=== PATIENT | female | born 1935 | race Caucasian/White ===

== ENCOUNTER 2016-05-16 09:45 | Outpatient (CLI) | payer MEDICARE, OTHER | END 2016-05-16 09:46 | disposition home or self-care (01) | DX: N18.9 Chronic kidney disease, unspecified (principal); E83.52 Hypercalcemia ==

== ENCOUNTER 2016-05-23 09:27 | Outpatient (CLI) | payer MEDICARE, OTHER | END 2016-05-23 09:28 | disposition home or self-care (01) | DX: E83.52 Hypercalcemia (principal); N18.9 Chronic kidney disease, unspecified; E21.3 Hyperparathyroidism, unspecified ==

== ENCOUNTER 2017-07-08 18:48 | Outpatient (CLI) | payer MEDICARE, OTHER | END 2017-07-08 18:49 | disposition critical access hospital (66) | LOC: EMS 18:48 | PROVIDERS: ATTEND Surgery | DX: R41.0 Disorientation, unspecified (principal); R46.89 Other symptoms and signs involving appearance and behavior; R07.9 Chest pain, unspecified | CPT/HCPCS: A0425; A0429 ==

== ENCOUNTER 2017-07-08 19:20 | Emergency (ER) | payer MEDICARE, OTHER ==
[2017-07-08] MEDS ORDERED: SODIUM CHLORIDE 0.9% 1,000 ML IV ONE (20:45)
[2017-07-08 21:01] LABS: BASOPHILS # (AUTO) 0.1 10^3/uL (0.0-0.1); BASOPHILS % (AUTO) 0.7 %; EOSINOPHILS # (AUTO) 0.1 10^3/uL (0.0-0.7); EOSINOPHILS % (AUTO) 0.9 %; HGB - HEMOGLOBIN 12.8 g/dL (12.0-16.0); LYMPHOCYTES # (AUTO) 1.3 10^3/uL (1.5-3.5); LYMPHOCYTES % (AUTO) 11.7 %; MEAN CORPUSCULAR HEMOGLOBIN 30.3 pg (27.0-31.0); MEAN CORPUSCULAR HGB CONC 32.3 g/dL (32.0-36.0); MEAN CORPUSCULAR VOLUME 93.7 fL (81.0-99.0); MEAN PLATELET VOLUME 7.2 fL (7.9-10.8); MONOCYTES # (AUTO) 0.8 10^3/uL (0.0-1.0); MONOCYTES % (AUTO) 7.6 %; NEUTROPHILS # (AUTO) 8.5 10^3/uL (1.5-6.6); NEUTROPHILS % (AUTO) 79.1 %; PLT - PLATELET COUNT 173 10^3/uL (130-450); RED BLOOD COUNT 4.23 10^6/uL (4.20-5.40); RED CELL DISTRIBUTION WIDTH 14.6 % (12.0-15.0); WHITE BLOOD COUNT 10.7 x10^3/uL (4.8-10.8)
[2017-07-08 21:13] LABS: ALBUMIN 4.3 g/dL (3.2-5.5); ALBUMIN/GLOBULIN RATIO 1.7 (1.0-2.2); BILIRUBIN,TOTAL 0.8 mg/dL (0.2-1.0); CALCIUM 10.9 mg/dL (8.5-10.3); CREATININE 2.2 mg/dL (0.4-1.0); TOTAL PROTEIN 6.9 g/dL (6.7-8.2)
[2017-07-08 21:25] LABS: BILIRUBIN,URINE NEGATIVE (NEGATIVE); GLUCOSE, URINE (UA) NEGATIVE (NEGATIVE); KETONES,URINE (UA) TRACE mg/dL (NEGATIVE); LEUKOCYTE ESTERASE, URINE MODERATE (NEGATIVE); NITRITE,URINE NEGATIVE (NEGATIVE); OCCULT BLOOD,URINE TRACE-INTA (NEGATIVE); PROTEIN,URINE TRACE mg/dL (NEGATIVE); UROBILINOGEN,URINE 0.2 (NORMAL) E.U./dL (NORMAL)
[2017-07-08 21:33] LABS: BACTERIA,URINE Many /HPF (None Seen); CLARITY,URINE CLOUDY (CLEAR); RBC,URINE 0-5 /HPF (0-5); SQUAMOUS EPITHELIAL CELL,UR FEW Squamous (<= Few)
[2017-07-08] MEDS ORDERED: NITROFURANTOIN MACRO 100 MG CAPSULE PO STA (22:08)
--- NOTE | 2017-07-08 22:14 | ED Physician Documentation ---
History of Present Illness - Stated complaint Stated Complaint: CONFUSED - Chief complaint Chief Complaint: Neuro - History obtained from History obtained from: Patient, Family - History of Present Illness Timing: Today - Additonal information Additional information: Patient is an 81 year old female with no signifcant past medical history who is presenting to the emergency department for near syncope. According to patient and patient was doing laundry when she got a bit light headed. patient leaned over on the washer and then the helped the patient to the floor. patient's called ems. By the time ems arrived patient was starting to feel a bit better and upon initial evaluation in the emergency department patient states that her symptoms have resolved. Review of Systems Constitutional: denies: Fever Eyes: denies: Decreased vision, Photophobia Ears: denies: Ear pain Nose: reports: Reviewed and negative Throat: reports: Reviewed and negative Cardiac: denies: Chest pain / pressure, Palpitations Respiratory: denies: Dyspnea, Cough, Wheezing GI: denies: Abdominal Pain, Nausea, Vomiting : denies: Dysuria, Frequency Skin: denies: Rash, Lesions Musculoskeletal: denies: Extremity swelling Neurologic: reports: Generalized weakness, Head injury. denies: Focal weakness , Syncope, Confused, Headache, LOC Immunocompromised: denies: Immunocompromised PD PAST MEDICAL HISTORY - Past Medical History Cardiovascular: None Respiratory: None Neuro: None Endocrine/Autoimmune: None GI: Chronic diarrhea : None HEENT: None Psych: None Musculoskeletal: Osteoarthritis Derm: Other drug resistant infections - Past Surgical History General: Appendectomy Ortho: Hip replacement, Knee replacement, Other - Present Medications Home Medications: Ambulatory Orders Medication Instructions Recorded Confirmed Niacin 250 mg PO DAILY 04/12/15 04/14/15 Allopurinol 100 mg PO DAILY 04/14/15 07/08/17 Atenolol 25 mg PO Q2D 04/14/15 07/08/17 Colestipol HCl [Colestid] 1 gm PO DAILY PRN 04/14/15 07/08/17 Losartan [Cozaar] 100 mg PO DAILY 04/14/15 07/08/17 Nitrofurantoin Monohyd/M-Cryst 100 mg PO BID 5 Days capsule 07/08/17 [Macrobid 100 mg Capsule] - Allergies Allergies/Adverse Reactions: Allergies Allergy/AdvReac Type Severity Reaction Status Date / Time Penicillins Allergy Hives Verified 07/08/17 19:24 - Social History Does the pt smoke?: No Smoking Status: Never smoker PD ED PE NORMAL - Vitals Vital signs reviewed: Yes - General General: Alert and oriented X 3, No acute distress - HEENT HEENT: Atraumatic, PERRL - Neck Neck: Supple, no meningeal sign - Cardiac Cardiac: RRR - Respiratory Respiratory: No respiratory distress, Clear bilaterally - Abdomen Abdomen: Soft, Non tender, Non distended - Derm Derm: Normal color, Warm and dry - Extremities Extremities: No deformity, No calf tenderness / cord - Neuro Neuro: Alert and oriented X 3, corporate development intern 2-12 intact, No motor deficit, No sensory deficit, Normal speech Eye Opening: Spontaneous Motor: Obeys Commands Verbal: Oriented GCS Score: 15 - Psych Psych: Normal mood PD ED PE EXPANDED - HEENT HEENT: Dry mucous membranes Results - Vitals Vitals: Vital Signs - 24 hr 07/08/17 07/08/17 07/08/17 19:22 20:00 22:20 Temperature 36.2 C L 36.6 C Heart Rate 94 94 84 Respiratory 18 16 14 Rate Blood Pressure 139/90 H 136/97 H 130/82 H O2 Saturation 99 100 99 Oxygen O2 Source Room air - EKG (time done) 1932 Rate: Rate (enter#) (91) Rhythm: NSR [place]: Normal Intervals: Normal [place] QRS: Normal - Labs Labs: Laboratory Tests 07/08/17 07/08/17 07/08/17 20:56 20:56 20:56 WBC 10.7 RBC 4.23 Hgb 12.8 Hct 39.6 MCV 93.7 MCH 30.3 MCHC 32.3 RDW 14.6 Plt Count 173 MPV 7.2 L Neut # 8.5 H Lymph # 1.3 L Payne # 0.8 Eos # 0.1 Baso # 0.1 Absolute Nucleated RBC 0.00 Nucleated RBC % 0.0 Sodium 138 Potassium 3.5 Chloride 103 Carbon Dioxide 24 Anion Gap 11.0 BUN 29 H Creatinine 2.2 H Estimated GFR (MDRD) 21 L Glucose 117 H Calcium 10.9 H Total Bilirubin 0.8 AST 39 ALT 25 Alkaline Phosphatase 92 Troponin I < 0.04 B-Natriuretic Peptide Total Protein 6.9 Albumin 4.3 Globulin 2.6 Albumin/Globulin Ratio 1.7 Lipase 35 Urine Color Urine Clarity Urine pH Ur Specific [place] Urine Protein Urine Glucose (UA) Urine Ketones Urine Occult Blood Urine Nitrite Urine Bilirubin Urine Urobilinogen Ur Leukocyte Esterase Urine RBC Urine WBC Ur Squamous Epith Cells Urine Bacteria Ur Microscopic Review Urine Culture Comments 07/08/17 07/08/17 20:56 21:13 WBC RBC Hgb Hct MCV MCH MCHC RDW Plt Count MPV Neut # Lymph # Payne # Eos # Baso # Absolute Nucleated RBC Nucleated RBC % Sodium Potassium Chloride Carbon Dioxide Anion Gap BUN Creatinine Estimated GFR (MDRD) Glucose Calcium Total Bilirubin AST ALT Alkaline Phosphatase Troponin I B-Natriuretic Peptide 24 Total Protein Albumin Globulin Albumin/Globulin Ratio Lipase Urine Color YELLOW Urine Clarity CLOUDY Urine pH 6.0 Ur Specific [place] 1.025 Urine Protein TRACE Urine Glucose (UA) NEGATIVE Urine Ketones TRACE Urine Occult Blood TRACE-INTA Urine Nitrite NEGATIVE Urine Bilirubin NEGATIVE Urine Urobilinogen 0.2 (NORMAL) Ur Leukocyte Esterase MODERATE H Urine RBC 0-5 Urine WBC >25 H Ur Squamous Epith Cells FEW Squamous Urine Bacteria Many H Ur Microscopic Review INDICATED Urine Culture Comments INDICATED PD MEDICAL DECISION MAKING - ED course Complexity details: reviewed old records, reviewed results, re-evaluated patient , considered differential, d/w patient, d/w family ED course: Patient was seen and examined at bedside. IV access was gained and labs were drawn. patient was treated with a fluid bolus. ekg was performed and was within normal limits. Patient's diagnostics revealed a urinary tract infection. Patient was started on macrobid. patient remained asymptomatic while in the emergency department and was asking to go home Patient required no further work up and was stable for discharge home with outpatient follow up. Departure - Departure Disposition: 01 Home, Self Care Clinical Impression: Urinary tract infection Condition: Good Instructions: ED UTI Cystitis Female Follow-Up: Carole Don MD [Primary Care Provider] - Within 3 Days Prescriptions: Nitrofurantoin Monohyd/M-Cryst [Macrobid 100 mg Capsule] 100 mg PO BID 5 Days capsule Comments: Your symptoms today are being caused by a urinary tract infection and dehydration. You had your first dose of antibiotics tonight and will need to be on them for the next 5 days. You should make sure you stay well hydrated. also you kidney function is continuing to worsen and you will need to follow up with your doctor for re-evaluation and care. You may return to the emergency department at any time for new, worsening or uncontrollable symptoms. Discharge Date/Time: 07/08/17 22:21
[2017-07-08 22:21] VITALS: BP 130/82
== END 2017-07-08 22:21 | disposition home or self-care (01) ==
LOC: EDUNIT# → ED 19:20
DX: N39.0 Urinary tract infection, site not specified (principal); M19.90 Unspecified osteoarthritis, unspecified site
CPT/HCPCS: 36415; 80053; 81001; 83690; 83880; 84484; 85025; 87086; 93005; 99283; 99284; A9270; 81003

== ENCOUNTER 2017-07-12 10:15 | Inpatient (IN) | payer MEDICARE, OTHER ==
[2017-07-12] MEDS ORDERED: LIDOCAINE PATCH 5% TOP PRN (12:12)
[2017-07-12] MEDS ORDERED: oxyCOD/ACETAMIN 5 MG/325 MG TABLET PO STA ×2 (12:12→14:52)
--- NOTE | 2017-07-12 12:14 | ED Physician Documentation ---
History of Present Illness - Stated complaint Stated Complaint: STERNUM PAIN - Chief complaint Chief Complaint: Cardiac - Additonal information Additional information: hx from pt and SO 81 f fell in laundry room struck ant chest seen after in ED and worked up for the near syncope that caused the fall, dx UTI rx macrobid no xray rx oxycodone still hurts did not hit head no headache neck pain abd pain ext pain hurts to move and touch Review of Systems Constitutional: denies: Fever Cardiac: reports: Chest pain / pressure Respiratory: denies: Dyspnea GI: denies: Abdominal Pain Musculoskeletal: denies: Neck pain, Back pain Neurologic: denies: Headache, Head injury Endocrine: denies: Easy bruising / bleeding Immunocompromised: denies: Immunocompromised PD PAST MEDICAL HISTORY - Past Medical History Cardiovascular: None Respiratory: None Neuro: None Endocrine/Autoimmune: None GI: Chronic diarrhea : None HEENT: None Psych: None Musculoskeletal: Osteoarthritis Derm: Other drug resistant infections - Past Surgical History General: Appendectomy Ortho: Hip replacement, Knee replacement, Other - Present Medications Home Medications: Ambulatory Orders Medication Instructions Recorded Confirmed Allopurinol 100 mg PO DAILY 04/14/15 07/12/17 Atenolol 25 mg PO Q2D 04/14/15 07/12/17 Losartan [Cozaar] 100 mg PO DAILY 04/14/15 07/12/17 Nitrofurantoin Monohyd/M-Cryst 100 mg PO BID 5 Days capsule 07/08/17 07/12/17 [Macrobid 100 mg Capsule] - Allergies Allergies/Adverse Reactions: Allergies Allergy/AdvReac Type Severity Reaction Status Date / Time Penicillins Allergy Hives Verified 07/12/17 10:25 - Social History Does the pt smoke?: No Smoking Status: Never smoker PD ED PE NORMAL - Vitals Vital signs reviewed: Yes - General General: Alert and oriented X 3 - HEENT HEENT: Atraumatic, PERRL - Neck Neck: No bony TTP - Cardiac Cardiac: RRR - Respiratory Respiratory: No respiratory distress, Clear bilaterally, Other (bruise and TTP ant chest wall just left of sternum no crepitus) - Abdomen Abdomen: Soft, Non tender - Derm Derm: Normal color - Extremities Extremities: No deformity, No tenderness to palpate - Neuro Neuro: Alert and oriented X 3 Results - Vitals Vitals: Vital Signs - 24 hr 07/12/17 07/12/17 07/12/17 10:20 10:36 13:54 Temperature 36.7 C Heart Rate 78 74 Respiratory 18 18 Rate Blood Pressure 146/104 H 172/90 H Blood Pressure 179/84 H [Left] Blood Pressure 182/96 H [Right] O2 Saturation 99 100 07/12/17 07/12/17 15:41 17:21 Temperature Heart Rate 87 71 Respiratory 16 20 Rate Blood Pressure 155/68 H 134/95 H Blood Pressure [Left] Blood Pressure [Right] O2 Saturation 95 100 Oxygen O2 Source Room air - EKG (time done) 1029 Rate: Rate (enter#) (80) Rhythm: NSR [place]: Normal Intervals: Normal [place] QRS: Normal Ischemia: Normal ST segments - Labs Labs: Laboratory Tests 07/12/17 07/12/17 15:00 15:00 WBC 10.5 RBC 4.39 Hgb 13.6 Hct 41.3 MCV 93.9 MCH 30.9 MCHC 32.9 RDW 14.4 Plt Count 181 MPV 7.8 L Neut # 7.6 H Lymph # 1.2 L [place] # 0.6 Eos # 1.0 H Baso # 0.1 Absolute Nucleated RBC 0.01 Nucleated RBC % 0.1 Sodium 141 Potassium 3.8 Chloride 107 Carbon Dioxide 24 Anion Gap 10.0 BUN 21 H Creatinine 1.3 H Estimated GFR (MDRD) 39 L Glucose 106 H Calcium 11.4 H - Rads (name of study) CXR Radiology: See rad report (sternial fracture) PD MEDICAL DECISION MAKING - ED course ED course: pt pain could not be controlled with PO meds and lido patch, she is sobbing in pain and shrieks whenever she moves she has developed atelectasis vs pna vs pulm contusion 2/2 resp status called [facility] for consult - transfer center relays that this CT trauma surg advises this is no surgical and would be managed medically - they will call with more specific rec pt and SO do not want to go to [place] in any case so will admit for pain control and pulm toilet called hospitalist at 1630 spoke to hospitalist at 1735 [facility] called back and rec no surgery but would rec consideration or an epidural or serratus block, advised may take 6-8 weeks to heal Departure - Departure Disposition: [facility] DC/Xfer Clinical Impression: Sternal fracture Qualifiers: Encounter type: initial encounter Sternal location: unspecified Fracture type: closed Qualified Code(s): S22.20XA - Unspecified fracture of sternum, initial encounter for closed fracture Pulmonary contusion Qualifiers: Encounter type: initial encounter Laterality: right Qualified Code(s): S27.321A - Contusion of lung, unilateral, initial encounter Condition: Fair Discharge Date/Time: 07/12/17 19:12
--- NOTE | 2017-07-12 13:21 | XRAY Preliminary Report ---
Exam: XR CHEST 2 VIEW X-RAY IMPRESSION: 1. Increased parenchymal markings right upper lobe, left lower lobe may be early infiltrate 2. There appears to be buckling along the mid sternum on lateral view [facility] SITE ID: [id number]
--- NOTE | 2017-07-12 13:21 | XRAY Report ---
EXAM: CHEST RADIOGRAPHY EXAM DATE: 07/12/2017 12:33 PM. CLINICAL HISTORY: Chest pain. COMPARISON: 05/05/2008. TECHNIQUE: 2 views. FINDINGS: Lungs/Pleura: Mild increased parenchymal markings right upper lobe. Left basilar infiltrate or atelec tasis. No pleural effusion. No pneumothorax. Flattening hemidiaphragms. Increased AP diameter Mediastinum: Heart size normal. Mildly ectatic aorta Other: There is buckling along the mid sternum on lateral view. Bilateral shoulder arthroplasties IMPRESSION: 1. Increased parenchymal markings right upper lobe, left lower lobe may be early infiltrate 2. There appears to be buckling along the mid sternum on lateral view [facility] Referring Provider Line: [phone] SITE ID: [id number]
--- NOTE | 2017-07-12 14:14 | CT Preliminary Report ---
Exam: CT CHEST W/O IMPRESSION: 1. Tandem nondisplaced fractures sternal body. 2. Late subacute mild wedging T7. 3. Acute on chronic lung disease consisting of small right posterior lung base infiltrate and tiny bi lateral pleural effusions. 4. Several mildly enlarged mediastinal lymph nodes. [facility] SITE ID: [id number]
[2017-07-12] MEDS ORDERED: MORPHINE 2 MG/ML SYRINGE IVP STA (14:23)
[2017-07-12] MEDS ORDERED: ONDANSETRON 4 MG/2 ML VIAL IVP STA (14:23)
--- NOTE | 2017-07-12 14:24 | CT Report ---
EXAM: CT CHEST EXAM DATE: 07/12/2017 01:43 PM. CLINICAL HISTORY: Chest pain since a fall 1 week ago. Sternal fracture suggested on earlier chest x-r ay. COMPARISONS: No prior CT exam. Two-view chest earlier today. TECHNIQUE: Routine helical CT imaging was performed through the chest. IV contrast: None. Reconstruct ions: Coronal and sagittal. In accordance with CT protocol optimization, one or more of the following dose reduction techniques w ere utilized for this exam: automated exposure control, adjustment of mA and/or KV based on patient s ize, or use of iterative reconstructive technique. FINDINGS: Lungs/Pleura: Overexpanded, emphysematous changes. Tiny bilateral pleural effusions. Subsegmental consolidation or atelectasis posterior basilar segment right lower lobe. No pulmonary nodules nor pneumothorax. Mediastinum: Heart is normal caliber. Several mildly enlarged mediastinal lymph nodes. Index lesion precarinal region axial image 21 series 3 measures 1.3 cm transverse dimension. Thoracic aorta is normal caliber. Bones: Acute transverse buckling junction of the mid and inferior third of the sternal body involving the an terior and posterior cortex, best appreciated on sagittal image 34. 8 mm rim of edema anterior and po sterior to the sternal fracture. Lesser degree of cortical buckling only involving the anterior cortex of the sternal body, junction o f superior and mid third of the sternum, also appreciated on sagittal image 34. Very small amount of edema anterior to such. Late subacute mild wedging T7. Moderate kyphosis centered at T7. Visualized Abdomen: Left renal cyst. Other: None. IMPRESSION: 1. Tandem nondisplaced fractures sternal body. 2. Late subacute mild wedging T7. 3. Acute on chronic lung disease consisting of small right posterior lung base infiltrate and tiny bi lateral pleural effusions. 4. Several mildly enlarged mediastinal lymph nodes. [facility] Referring Provider Line: [phone] SITE ID: [id number]
[2017-07-12 15:53] LABS: BASOPHILS # (AUTO) 0.1 10^3/uL (0.0-0.1); BASOPHILS % (AUTO) 0.7 %; EOSINOPHILS % (AUTO) 9.6 %; HGB - HEMOGLOBIN 13.6 g/dL (12.0-16.0); LYMPHOCYTES # (AUTO) 1.2 10^3/uL (1.5-3.5); LYMPHOCYTES % (AUTO) 11.4 %; MEAN CORPUSCULAR HEMOGLOBIN 30.9 pg (27.0-31.0); MEAN CORPUSCULAR HGB CONC 32.9 g/dL (32.0-36.0); MEAN CORPUSCULAR VOLUME 93.9 fL (81.0-99.0); MEAN PLATELET VOLUME 7.8 fL (7.9-10.8); MONOCYTES # (AUTO) 0.6 10^3/uL (0.0-1.0); MONOCYTES % (AUTO) 5.8 %; NEUTROPHILS # (AUTO) 7.6 10^3/uL (1.5-6.6); NEUTROPHILS % (AUTO) 72.5 %; PLT - PLATELET COUNT 181 10^3/uL (130-450); RED BLOOD COUNT 4.39 10^6/uL (4.20-5.40); RED CELL DISTRIBUTION WIDTH 14.4 % (12.0-15.0); WHITE BLOOD COUNT 10.5 x10^3/uL (4.8-10.8)
[2017-07-12 15:59] LABS: CALCIUM 11.4 mg/dL (8.5-10.3); CREATININE 1.3 mg/dL (0.4-1.0)
[2017-07-12] MEDS ORDERED: PROCHLORPERAZINE 10 MG/2 ML VIAL IVP PRN (18:20)
[2017-07-12] MEDS ORDERED: TEMAZEPAM 15 MG CAPSULE PO PRN (18:20)
[2017-07-12] MEDS: SODIUM CHLORIDE FLUSH 0.9% 10 ML SYRINGE IVP PRN ×2 (20:15→20:42)
[2017-07-12] MEDS: PANTOPRAZOLE 40 MG VIAL IVP SCH (20:15)
[2017-07-12] MEDS: HYDROmorphone 0.5 MG/0.5 ML SYRINGE IVP PRN (20:15)
[2017-07-12] MEDS: guaiFENesin 600 MG TABLET PO SCH (20:42)
[2017-07-12] MEDS: oxyCOD/ACETAMIN 5 MG/325 MG TABLET PO PRN (20:42)
[2017-07-12] MEDS: cefTRIAXone 1 GM in SODIUM CHLORIDE 0.9% MINIBAG 100 ML IV SCH (20:43)
[2017-07-12] MEDS: AZITHROMYCIN 250 MG TABLET PO SCH (20:45)
[2017-07-12] MEDS ORDERED: ATENOLOL 25 MG TABLET PO SCH (21:00)
--- NOTE | 2017-07-12 23:31 | HISTORY & PHYSICAL EXAMINATION ---
DATE OF SERVICE: 07/12/2017 Physician: Anusha Brown MD PRIMARY CARE PHYSICIAN: Carole Don MD. CHIEF COMPLAINT: Excruciating chest pain. HISTORY OF PRESENT ILLNESS: Ms. Hart is a pleasant 81-year-old white female who appeared somewhat forgetful and not a very detailed historian when I admitted her. I reviewed ER record, plus the patient provided history. The patient was seen in the ER on , four days prior to current admission. At that time, she presented after suffering a fall, in particular falling on an object /on her washer. The history she provides is somewhat vague, as far as she was doing laundry, she was bending down, at which time she felt short of breath and lost her balance and she fell chest forward on the edge of the washer. At that time, her ER workup showed acute kidney injury with creatinine of 2.2. Urinalysis was positive suggesting urinary tract infection. She received hydration and antibiotic and was found stable enough to get discharged from the ER. Subsequently, during the past four days, she developed excruciating unbearable chest pain. It was worse on physical activity and it appeared as a musculoskeletal pain. Her sternum and the muscles around it hurt. She came back to the ER due to this extreme pain. She did not report any additional complaint. At the ER, she underwent chest x-ray and subsequently the x-ray was followed up with a CT scan of the chest which showed numerous abnormalities including tandem nondisplaced fractures of the sternal body. In addition, there was a late subacute mild wedging of T7, acute on chronic lung disease was described including posterior lung base infiltrate and tiny bilateral pleural effusions. Several mildly enlarged mediastinal lymph nodes were seen as well. Laboratory showed creatinine of 1.3, which decreased from four days ago being 2.2. EKG showed sinus rhythm and nonspecific changes. Notably four days ago, troponin was negative. Given the tandem sternal fracture, the case was discussed with [facility]. We received sign out from the ER physician, Dr. Peoples, who discussed this case with the [facility] physician interpersonal communications professor. The trauma surgeon advised no surgical intervention and given that this would be medical management, they did not recommend transferring this patient. Beside that opinion, the patient herself stated that she would not want to get transferred. The trauma surgeon recommended admission of this patient for pain control and pulmonary toilet. In addition, they recommended epidural or serratus block and anesthesia consult for that. PAST MEDICAL HISTORY 1. Hypertension. 2. Gout. 3. History of urine infection. 4. Dyslipidemia. OUTPATIENT MEDICATIONS: Reviewed per electronic medical record included: 1. Atenolol. 2. Nitrofurantoin. 3. Losartan. 4. Allopurinol. SOCIAL HISTORY: The patient ambulates with a cane. She is a nonsmoker. She lives with her . FAMILY HISTORY: Negative for coronary artery disease or diabetes. The patient reported that two of her sons have history of spherocytosis. REVIEW OF SYSTEMS: Please see pertinent positive listed above at history of present illness. I completed 12-point review. The patient denied all additional complaints. PHYSICAL EXAMINATION VITAL SIGNS: Temperature 36.7, heart rate between 70 and 90, respiratory rate 20, oxygen saturation 98% on room air, blood pressure 150/110. GENERAL: The patient is a well-developed, elderly female who had intense chest pain, sternal pain. She could not sit up in bed or move much as she was crying due to the intense pain. CARDIOVASCULAR: S1, S2 regular. I could not hear pathologic murmur. RESPIRATORY: Decreased air entry above the bases. No wheezes, no crackles. No increased work of breathing. MUSCULOSKELETAL: With intense pain and tenderness over the sternum and the chest muscles. A healing bruise on the left upper thigh. No other obvious injury. NEUROLOGIC: The patient was alert, appeared forgetful, but answered most of my questions appropriately, was neurologically nonfocal. Head symmetric face and normal speech. PSYCHIATRIC: Appropriate mood and affect. LYMPH: No lymphedema. SKIN: Without jaundice or pallor. There were lesions of seborrheic keratoses. ABDOMEN: Soft, benign, nontender. Bowel tones present. ASSESSMENT AND PLAN/ACTIVE ISSUES/DIAGNOSES 1. Uncontrolled pain secondary to tandem nondisplaced sternal fracture. a. Will require inpatient hospitalization due to the intense pain. The patient cannot ambulate or take care of herself. Per trauma surgeon's opinion, the healing will be a long process six to eight weeks and during that time the patient will require significant support. She might need to discharge to a rehab facility. In addition, it was suggested that besides pain control, anesthesia consult gets requested for epidural or serratus block. 2. T7 wedge. 3. Developing pneumonia in the setting of splinting and sternal fracture. 4. Recent mechanical fall about four days ago, which led to the sternal fracture. The patient is a poor historian and cannot tell much about the circumstances, but she reports that she was short of breath. In any case, she likely deserves further workup to make sure no other abnormality contributed. 5. History of hypertension, slightly uncontrolled blood pressure on admission , most likely situational in the setting of uncontrolled pain. 6. Recent urine infection, treated on nitrofurantoin. 7. Recent acute kidney injury. Four days ago creatinine was 2.2, today is 1.3. Still appears slightly dehydrated. Notably, had been on losartan as outpatient. PLAN AND ORDERS 1. Patient is getting admitted as inpatient. We will continue pain control with Toradol, lidocaine patch and opiate as needed. 2. We will request social work, physical therapy, occupational therapy evaluation for discharge planning. 3. During the daytime anesthesia consult could be requested for epidural block/pain control. 4. We will treat pneumonia as community acquired with ceftriaxone and Zithromax. We will check urinalysis. If the patient would have residual untreated UTI, ceftriaxone would work for that as well. 5. Supportive care with incentive spirometry, bronchodilator, DVT prophylaxis. 6. Code status was discussed with the patient. She wishes to be DO NOT RESUSCITATE CODE status. 7. For possible syncope or presyncope, we will order further workup, which will include echocardiogram, MRI of the brain to rule out cerebrovascular accident, in particular posterior circulation stroke. We will monitor the patient on telemetry and recheck troponin one time. 8. Further workup will depend on the clinical course. Time spent in the care of this patient was 65 minutes. ATTESTATION: I certify that the reasonable expectation for this patient is to remain hospitalized for at least 48 hours; however, get discharged or transferred to another facility within 96 hours. cc: Carole Don M.D. TD: 07/12/2017 22:30 MTDLora
[2017-07-13] MEDS: IPRATROPIUM/ALBUTEROL 3 ML NEB INH SCH ×3 (00:45→23:59)
[2017-07-13] MEDS: SODIUM CHLORIDE FLUSH 0.9% 10 ML SYRINGE IVP SCH ×5 (03:40→20:29)
[2017-07-13] MEDS: KETOROLAC 15 MG/ML VIAL IVP PRN ×2 (03:40→10:17)
[2017-07-13] MEDS: SODIUM CHLORIDE FLUSH 0.9% 10 ML SYRINGE IVP PRN ×3 (03:41→15:59)
[2017-07-13] MEDS: oxyCOD/ACETAMIN 5 MG/325 MG TABLET PO PRN ×4 (03:42→20:28)
[2017-07-13 06:18] LABS: BASOPHILS % (AUTO) 0.5 %; EOSINOPHILS # (AUTO) 0.9 10^3/uL (0.0-0.7); EOSINOPHILS % (AUTO) 11.9 %; HGB - HEMOGLOBIN 11.5 g/dL (12.0-16.0); LYMPHOCYTES # (AUTO) 0.8 10^3/uL (1.5-3.5); LYMPHOCYTES % (AUTO) 10.8 %; MEAN CORPUSCULAR HEMOGLOBIN 30.3 pg (27.0-31.0); MEAN CORPUSCULAR HGB CONC 32.3 g/dL (32.0-36.0); MEAN CORPUSCULAR VOLUME 93.8 fL (81.0-99.0); MEAN PLATELET VOLUME 7.4 fL (7.9-10.8); MONOCYTES # (AUTO) 0.7 10^3/uL (0.0-1.0); NEUTROPHILS # (AUTO) 4.9 10^3/uL (1.5-6.6); NEUTROPHILS % (AUTO) 67.8 %; PLT - PLATELET COUNT 151 10^3/uL (130-450); RED CELL DISTRIBUTION WIDTH 14.4 % (12.0-15.0); WHITE BLOOD COUNT 7.2 x10^3/uL (4.8-10.8)
[2017-07-13 06:28] LABS: CALCIUM 10.5 mg/dL (8.5-10.3); CREATININE 1.6 mg/dL (0.4-1.0)
[2017-07-13] MEDS: PANTOPRAZOLE 40 MG VIAL IVP SCH ×2 (06:53→15:59)
[2017-07-13] MEDS: guaiFENesin 600 MG TABLET PO SCH ×2 (08:28→20:28)
[2017-07-13] MEDS: ALLOPURINOL 100 MG TABLET PO SCH (08:28)
[2017-07-13] MEDS: POLYETHYLENE GLYCOL 3350 17 GM PACKET PO SCH (08:29)
[2017-07-13] MEDS: AZITHROMYCIN 250 MG TABLET PO SCH (08:37)
[2017-07-13] MEDS ORDERED: ATENOLOL 25 MG TABLET PO SCH (09:00)
--- NOTE | 2017-07-13 10:12 | ANESTHESIA ---
Labs, EKG, Meds, Allergy - Lab Results Fish Bones: 07/13/17 05:44 07/13/17 05:44 Other Lab Results: Lab Results x24hrs 07/13/17 07/13/17 07/12/17 Range/Units 05:44 05:44 21:59 WBC 7.2 (4.8-10.8) x10^3/uL RBC 3.80 L (4.20-5.40) 10^6/uL Hgb 11.5 L (12.0-16.0) g/dL Hct 35.7 L (37.0-47.0) % MCV 93.8 (81.0-99.0) fL MCH 30.3 (27.0-31.0) pg MCHC 32.3 (32.0-36.0) g/dL RDW 14.4 (12.0-15.0) % Plt Count 151 (130-450) 10^3/uL MPV 7.4 L (7.9-10.8) fL Neut # 4.9 (1.5-6.6) 10^3/uL Lymph # 0.8 L (1.5-3.5) 10^3/uL Garfield # 0.7 (0.0-1.0) 10^3/uL Eos # 0.9 H (0.0-0.7) 10^3/uL Baso # 0.0 (0.0-0.1) 10^3/uL Absolute Nucleated RBC 0.00 x10^3/uL Nucleated RBC % 0.1 /100WBC Sodium 141 (135-145) mmol/L Potassium 3.5 (3.5-5.0) mmol/L Chloride 107 (101-111) mmol/L Carbon Dioxide 24 (21-32) mmol/L Anion Gap 10.0 (6-13) BUN 24 H (6-20) mg/dL Creatinine 1.6 H (0.4-1.0) mg/dL Estimated GFR (MDRD) 31 L (>89) Glucose 103 H (70-100) mg/dL POC Whole Bld Glucose (70 - 100) mg/dL Calcium 10.5 H (8.5-10.3) mg/dL Troponin I < 0.04 (<0.49) ng/mL 07/12/17 Range/Units 21:54 WBC (4.8-10.8) x10^3/uL RBC (4.20-5.40) 10^6/uL Hgb (12.0-16.0) g/dL Hct (37.0-47.0) % MCV (81.0-99.0) fL MCH (27.0-31.0) pg MCHC (32.0-36.0) g/dL RDW (12.0-15.0) % Plt Count (130-450) 10^3/uL MPV (7.9-10.8) fL Neut # (1.5-6.6) 10^3/uL Lymph # (1.5-3.5) 10^3/uL Garfield # (0.0-1.0) 10^3/uL Eos # (0.0-0.7) 10^3/uL Baso # (0.0-0.1) 10^3/uL Absolute Nucleated RBC x10^3/uL Nucleated RBC % /100WBC Sodium (135-145) mmol/L Potassium (3.5-5.0) mmol/L Chloride (101-111) mmol/L Carbon Dioxide (21-32) mmol/L Anion Gap (6-13) BUN (6-20) mg/dL Creatinine (0.4-1.0) mg/dL Estimated GFR (MDRD) (>89) Glucose (70-100) mg/dL POC Whole Bld Glucose 105 H (70 - 100) mg/dL Calcium (8.5-10.3) mg/dL Troponin I (<0.49) ng/mL - Medications Medications: Ambulatory Orders Medication Instructions Recorded Confirmed Allopurinol 100 mg PO DAILY 04/14/15 07/12/17 Atenolol 25 mg PO Q2D 04/14/15 07/12/17 Losartan [Cozaar] 100 mg PO DAILY 04/14/15 07/12/17 Nitrofurantoin Monohyd/M-Cryst 100 mg PO BID 5 Days capsule 07/08/17 07/12/17 [Macrobid 100 mg Capsule] - Allergy Allergy: Allergies Allergy/AdvReac Type Severity Reaction Status Date / Time Penicillins Allergy Hives Verified 07/12/17 10:25 Allopurinol 100 mg PO DAILY 04/14/15 Atenolol 25 mg PO Q2D 04/14/15 Losartan [Cozaar] 100 mg PO DAILY 04/14/15 Nitrofurantoin Monohyd/M-Cryst [Macrobid 100 mg Capsule] 100 mg PO BID 5 Days capsule 07/08/17 Exam - Vitals Vitals:: Temp Pulse Resp BP Pulse Ox 98 C H 57 L 12 126/74 100 07/13/17 08:00 07/13/17 08:00 07/13/17 08:00 07/13/17 08:00 07/13/17 08:00 Plan - Procedure Procedure: Asked to evaluate patient for pain management. Patient has 1 week old sternal and T7 fractures due to fall. It is unlikely a thoracic epidural would provide her with pain relief. I offered the patient an epidural, but she declines as it is unlikely to provide her with pain relief. I recommend continuing IV pain meds and lidocaine patches.
[2017-07-13] MEDS: LIDOCAINE PATCH 5% TOP PRN (12:00)
--- NOTE | 2017-07-13 16:29 | Ultrasound Preliminary Report ---
Exam: US CAROTID DOPPLER COMPLETE IMPRESSION: No hemodynamically significant stenoses. Validated velocity measurements with angiographic measurements and velocity criteria are extrapolated from diameter data as defined by the Society of Radiologists in Ultrasound Consensus Conference Radi ology 2003; 229;340-346. [facility] SITE ID: [id number]
--- NOTE | 2017-07-13 16:32 | MRI Report ---
EXAM: MRI BRAIN WITHOUT CONTRAST EXAM DATE: 07/13/2017 12:52 PM. CLINICAL HISTORY: Rule out CVA subacute. Near syncope. COMPARISON: None. TECHNIQUE: Multiplanar, multisequence T1-weighted and fluid-sensitive MR sequences of the brain were performed. Sequences optimized for routine evaluation. Other: None. IV Contrast: None. FINDINGS: The diffusion-weighted images are normal. There is no evidence of acute or subacute cerebral infarcti on. The pituitary and sella are normal. The craniocervical junction is normal. 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 The cerebral vascular flow voids are patent. The FLAIR images demonstrate multiple punctate and confluent areas of T2 hyperintensity within the tabares bcortical, deep, and periventricular white matter. This is consistent with a mild to moderate degree of chronic small vessel ischemia. There is enlargement of the lateral ventricles and the third ventricle. This appears to be out of pro portion to the degree of sulcal enlargement. The Mora ratio is elevated at 0.40. There is no signifi cant funneling of the cerebral aqueduct. In the correct clinical setting this could reflect changes o f normal pressure hydrocephalus. Other etiologies which can produce a similar appearance would includ e central volume loss. The T2* sequence is normal. There is no evidence of subacute or chronic hemorrhage. The images are degraded by motion. The optic nerves demonstrate symmetric signal intensity and size. The bilateral parotid spaces exhib it normal signal intensity. The imaged portions of the paranasal sinuses are normally aerated. IMPRESSION: 1. There is no evidence of acute or subacute cerebral infarction. 2. 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 3. There is mild to moderate degree of chronic small vessel ischemia. 4. There is ventriculomegaly which appears to be out of proportion to the degree of sulcal enlargemen t. The Mora ratio is elevated at 0.40. In the correct clinical setting this may reflect changes of n ormal pressure hydrocephalus. Other etiologies which can produce a similar appearance would include c entral volume loss. Recommend clinical correlation. 5. There is no evidence of brain mass. Referring Provider Line: [phone] SITE ID: [id number]
--- NOTE | 2017-07-13 17:12 | Ultrasound Report ---
EXAM: CAROTID DOPPLER ULTRASOUND EXAM DATE: 07/13/2017 10:52 AM. CLINICAL HISTORY: Syncope. COMPARISON: None. TECHNIQUE: Real-time sonographic vascular imaging was performed by the baseball player through the caroti d arterial system with a linear transducer utilizing color-flow, Doppler flow and spectral analysis. Multiple parts counter representative static images were saved for review. FINDINGS: The bilateral carotid and vertebral arteries are patent with antegrade flow. There is mild bilateral atherosclerotic plaque. No significant internal carotid velocity elevation. RIGHT: RCCA Prox: PSV 101.95 cm/sec. RCCA Dist: PSV 73 cm/sec, EDV 18 cm/sec. RECA: PSV 78 cm/sec. R Bulb: PSV 87 cm/sec, EDV 18 cm/sec, ICA/CCA ratio 1.1. MIKAYLA Prox: PSV 84 cm/sec, EDV 20 cm/sec, ICA/CCA ratio 1.1. MIKAYLA Mid: PSV 72 cm/sec, EDV 1 cm/sec, ICA/CCA ratio 0.98. MIKAYLA Dist: PSV 58 cm/sec, EDV 1 cm/sec, ICA/CCA ratio 0.79. RVA: PSV 40 cm/sec. RVA flow direction: Antegrade. LEFT: LCCA Prox: PSV 115 cm/sec. LCCA Dist: PSV 79 cm/sec, EDV 16 cm/sec. LECA: PSV 86 cm/sec. L Bulb: PSV 99 cm/sec, EDV 11 cm/sec, ICA/CCA ratio 1.25. LICA Prox: PSV 96 cm/sec, EDV 22 cm/sec, ICA/CCA ratio 1.21. LICA Mid: PSV 65 cm/sec, EDV 15 cm/sec, ICA/CCA ratio 0.82. LICA Dist: PSV 51 cm/sec, EDV 17 cm/sec, ICA/CCA ratio 0.64. LVA: PSV 66 cm/sec. LVA flow direction: Antegrade. Other: None. IMPRESSION: No hemodynamically significant stenoses. Validated velocity measurements with angiographic measurements and velocity criteria are extrapolated from diameter data as defined by the Society of Radiologists in Ultrasound Consensus Conference Radi ology 2003; 229;340-346. [facility] Referring Provider Line: [phone] SITE ID: [id number]
--- NOTE | 2017-07-13 17:40 | PROVIDER PROGRESS NOTE ---
Assessment/Plan - Problem List (1) Sternal fracture Qualifiers: Encounter type: subsequent encounter Sternal location: unspecified Fracture type: closed Assessment/Plan: No epidural block or serratus block can be done, per Anesthesia consult, which was recommended by outside surgeon last night, when ER reached out to [facility]. Will continue narcotics, pain patch and order a sternal pillow for coughing and deep breathing. Continue Incentive spirometry. (2) CAP (community acquired pneumonia) Qualifiers: Laterality: unspecified laterality Qualified Code(s): J18.9 - Pneumonia, unspecified organism Assessment/Plan: RUL and LLL have infiltrates present. This could b e from poor ventilation due to thoracic pain. Pt on empiric antibiotics. Continue for a 7-10 day course. (3) Status post fall Assessment/Plan: W/U for syncope and stroke underway. Carotid Doppler showed no significant stenoses. Brain MRI showed cerebellar infarcts, signs of small vessel ischemia and possible NPH. Echo showed preserved LVEF and no intracardiac source of emboli. Start aspirin. Check lipids. (4) Confusion Assessment/Plan: Pt admits to poor memory. This is made worse by being on narcotics for pain control. Will have Soc Work discuss options for SNF and help at home. (5) Hypotension Assessment/Plan: The patient was on Lisinopril and Atenolol for BP control. Here she has borderline low BP. Will hold both meds. (6) CKD (chronic kidney disease) stage 3, GFR 30-59 ml/min Assessment/Plan: Watch BUN/creat and sart gentle hydration, to prevent ATN. (7) Urinary tract infection Assessment/Plan: Pt was on Macrobid antibiotic before admission, but no urinalysis or urine culture was done at admission. Will order both, to assess if needs antibiotic. - Current Meds Current Meds: Current Medications Generic Name Dose Route Start Last Admin Trade Name Freq PRN Reason Stop Dose Admin Albuterol/Ipratropium 3 ml 07/12/17 21:00 07/13/17 00:45 Duoneb INH Not Given RTQID KATHERINE Allopurinol 100 mg 07/13/17 09:00 07/13/17 08:28 Zyloprim PO 100 mg DAILY KATHERINE Administration Atenolol 25 mg 07/13/17 09:00 07/13/17 08:28 Tenormin PO 25 mg DAILY KATHERINE Administration Azithromycin 500 mg 07/12/17 09:00 07/13/17 08:37 Zithromax PO 500 mg DAILY KATHERINE Administration Guaifenesin 600 mg 07/12/17 21:00 07/13/17 08:28 Mucinex PO 600 mg BID KATHERINE Administration Hydromorphone HCl 0.5 mg 07/12/17 18:20 07/12/17 20:15 Dilaudid Inj Syringe IVP 0.5 mg Q2H PRN Administration Pain 8 to 10 Ceftriaxone Sodium 1 gm/ 100 mls @ 200 mls/hr 07/12/17 21:00 07/12/17 21:15 Sodium Chloride IV Infused Q24H KATHERINE Infusion Ketorolac Tromethamine 15 mg 07/12/17 20:07 07/13/17 10:17 Toradol Inj IVP 07/17/17 20:06 15 mg Q6HR PRN Administration PAIN Lidocaine 1 patch 07/12/17 20:08 07/13/17 12:00 Lidoderm Patch TOP 1 patch DAILY PRN Administration PAIN Oxycodone/Acetaminophen 1 tab 07/12/17 20:06 07/13/17 15:59 Percocet 5 Mg/325 Mg PO 1 tab Q4HR PRN Administration PAIN Pantoprazole Sodium 40 mg 07/12/17 19:00 07/13/17 15:59 Protonix IVP 40 mg BIDAC KATHERINE Administration Polyethylene Glycol 17 gm 07/13/17 09:00 07/13/17 08:29 Miralax PO Not Given DAILY [facility] Prochlorperazine Edisylate 10 mg 07/12/17 18:20 07/12/17 20:39 Compazine Inj IVP 10 mg Q6HR PRN Administration Nausea / Vomiting Sodium Chloride 10 ml 07/12/17 18:20 07/13/17 15:59 Normal Saline Flush 0.9% IVP 10 ml PRN PRN Administration NEEDED PER PROVIDER ORDERS Sodium Chloride 10 ml 07/13/17 01:00 07/13/17 15:59 Normal Saline Flush 0.9% IVP 10 ml 0100,0900,1700 KATHERINE Administration - Lab Result Fish Bone Diagrams: 07/13/17 05:44 07/13/17 05:44 - Additional Planning My Orders: My Active Orders 07/12/17 18:48 CULTURE, BLOOD #1 [RM] Stat 05/11/18 18:57 CULTURE, BLOOD #2 [RM] Stat 07/13/17 09:02 Anesthesia Consult [CONS] Routine 07/13/17 12:42 Miscellaenous Nursing Order [RC] QSHIFT 07/14/17 05:00 BMP - BASIC METABOLIC PANEL [CHEM] DAILYLAB Subjective - Subjective Patient Reports: Feeling Better, Other (Pain meds are helping.) Nursing Reports: Other (Pt seems confused and admits to poor memory. She had poor balance as OOB to a BSC, with 2 person assist and a walker.) Objective Vital Signs: Vital Signs - 24 hr 07/12/17 07/12/17 07/12/17 18:47 19:23 20:00 Temperature 36.7 C Heart Rate 80 Heart Rate [ Activity] Heart Rate [ 75 77 Monitoring electrodes] Respiratory 16 21 19 Rate Respiratory Rate [With Activity] Blood Pressure 125/81 H Blood Pressure [Activity] Blood Pressure [Left Brachial artery] Blood Pressure 152/79 H 151/110 H [Right Brachial artery] O2 Saturation 96 98 95 O2 Saturation [ With Activity] 07/12/17 07/12/17 07/12/17 21:00 22:00 23:00 Temperature Heart Rate Heart Rate [ Activity] Heart Rate [ 74 74 64 Monitoring electrodes] Respiratory 13 21 12 Rate Respiratory Rate [With Activity] Blood Pressure Blood Pressure [Activity] Blood Pressure [Left Brachial artery] Blood Pressure 145/90 H 147/82 H 115/70 [Right Brachial artery] O2 Saturation 97 96 93 O2 Saturation [ With Activity] 07/12/17 07/13/17 07/13/17 23:34 00:00 00:44 Temperature 36 C L Heart Rate Heart Rate [ Activity] Heart Rate [ 63 Monitoring electrodes] Respiratory 11 L 13 Rate Respiratory Rate [With Activity] Blood Pressure Blood Pressure [Activity] Blood Pressure [Left Brachial artery] Blood Pressure 117/80 [Right Brachial artery] O2 Saturation 94 99 O2 Saturation [ With Activity] 07/13/17 07/13/17 07/13/17 01:00 02:00 03:00 Temperature Heart Rate Heart Rate [ Activity] Heart Rate [ 59 L 57 L 57 L Monitoring electrodes] Respiratory 16 25 H 12 Rate Respiratory Rate [With Activity] Blood Pressure Blood Pressure [Activity] Blood Pressure 99/62 118/71 99/66 [Left Brachial artery] Blood Pressure [Right Brachial artery] O2 Saturation 100 99 99 O2 Saturation [ With Activity] 07/13/17 07/13/17 07/13/17 03:35 04:00 05:00 Temperature 36.4 C L Heart Rate Heart Rate [ Activity] Heart Rate [ 60 61 Monitoring electrodes] Respiratory 13 16 Rate Respiratory Rate [With Activity] Blood Pressure Blood Pressure [Activity] Blood Pressure 119/74 125/81 H [Left Brachial artery] Blood Pressure [Right Brachial artery] O2 Saturation 91 L 97 O2 Saturation [ With Activity] 07/13/17 07/13/17 07/13/17 06:00 07:00 08:00 Temperature 98 C H Heart Rate Heart Rate [ Activity] Heart Rate [ 56 L 56 L 57 L Monitoring electrodes] Respiratory 16 10 L 12 Rate Respiratory Rate [With Activity] Blood Pressure Blood Pressure [Activity] Blood Pressure 103/63 95/62 126/74 [Left Brachial artery] Blood Pressure [Right Brachial artery] O2 Saturation 91 L 91 L 100 O2 Saturation [ With Activity] 07/13/17 07/13/17 07/13/17 11:00 12:00 16:00 Temperature 36.5 C 36.6 C Heart Rate Heart Rate [ 59 L Activity] Heart Rate [ 56 L 57 L Monitoring electrodes] Respiratory 12 15 Rate Respiratory 22 Rate [With Activity] Blood Pressure Blood Pressure 123/91 H [Activity] Blood Pressure 99/62 106/86 H [Left Brachial artery] Blood Pressure [Right Brachial artery] O2 Saturation 95 100 O2 Saturation [ 95 With Activity] Oxygen O2 Source [With Activity] Room air O2 Source Room air I&O (Last 24 Hrs): Intake and Output Totals x24h 07/11/17 07/12/17 07/13/17 23:59 23:59 23:59 Intake Total 400 1100 Output Total 300 Balance 400 800 General: Alert, Oriented x3, Other (Appears disheveled.) HEENT: Mucous membr. moist/pink Neck: Supple, No JVD Neuro: Non Focal, Other (Confused, poor historian.) Cardiovascular: Regular rate, No murmurs Respiratory: No respiratory distress, Other (Has a Lidocaine patch over sternum. ) Abdomen: No tenderness Extremities: No edema - Results Results: Laboratory Results WBC 7.2 x10^3/uL (4.8-10.8) 07/13/17 05:44 RBC 3.80 10^6/uL (4.20-5.40) L 07/13/17 05:44 Hgb 11.5 g/dL (12.0-16.0) L 07/13/17 05:44 Hct 35.7 % (37.0-47.0) L 07/13/17 05:44 MCV 93.8 fL (81.0-99.0) 07/13/17 05:44 MCH 30.3 pg (27.0-31.0) 07/13/17 05:44 MCHC 32.3 g/dL (32.0-36.0) 07/13/17 05:44 RDW 14.4 % (12.0-15.0) 07/13/17 05:44 Plt Count 151 10^3/uL (130-450) 07/13/17 05:44 MPV 7.4 fL (7.9-10.8) L 07/13/17 05:44 Neut # 4.9 10^3/uL (1.5-6.6) 07/13/17 05:44 Lymph # 0.8 10^3/uL (1.5-3.5) L 07/13/17 05:44 Twiggs # 0.7 10^3/uL (0.0-1.0) 07/13/17 05:44 Eos # 0.9 10^3/uL (0.0-0.7) H 07/13/17 05:44 Baso # 0.0 10^3/uL (0.0-0.1) 07/13/17 05:44 Absolute Nucleated RBC 0.00 x10^3/uL 07/13/17 05:44 Nucleated RBC % 0.1 /100WBC 07/13/17 05:44 Sodium 141 mmol/L (135-145) 07/13/17 05:44 Potassium 3.5 mmol/L (3.5-5.0) 07/13/17 05:44 Chloride 107 mmol/L (101-111) 07/13/17 05:44 Carbon Dioxide 24 mmol/L (21-32) 07/13/17 05:44 Anion Gap 10.0 (6-13) 07/13/17 05:44 BUN 24 mg/dL (6-20) H 07/13/17 05:44 Creatinine 1.6 mg/dL (0.4-1.0) H 07/13/17 05:44 Estimated GFR (MDRD) 31 (>89) L 07/13/17 05:44 Glucose 103 mg/dL (70-100) H 07/13/17 05:44 POC Whole Bld Glucose 105 mg/dL (70 - 100) H 07/12/17 21:54 Calcium 10.5 mg/dL (8.5-10.3) H 07/13/17 05:44 Troponin I < 0.04 ng/mL (<0.49) 07/12/17 21:59 - Procedures Procedures: Procedures INSERTION OF INFUSION DEV INTO SUP VENA CAVA, PERC APPROACH (04/20/15)
[2017-07-13 18:20] LABS: GLUCOSE, URINE (UA) NEGATIVE (NEGATIVE); KETONES,URINE (UA) NEGATIVE (NEGATIVE); LEUKOCYTE ESTERASE, URINE TRACE (NEGATIVE); NITRITE,URINE NEGATIVE (NEGATIVE); OCCULT BLOOD,URINE NEGATIVE (NEGATIVE); PROTEIN,URINE TRACE mg/dL (NEGATIVE); UROBILINOGEN,URINE 0.2 (NORMAL) E.U./dL (NORMAL)
[2017-07-13 18:30] LABS: BILIRUBIN,URINE NEGATIVE (NEGATIVE); CLARITY,URINE HAZY (CLEAR); ICTOTEST,URINE NEGATIVE
[2017-07-13 18:40] LABS: RBC,URINE 0-5 /HPF (0-5); SQUAMOUS EPITHELIAL CELL,UR MOD Squamous (<= Few); WBC CLUMPS,URINE PRESENT
[2017-07-13 18:41] LABS: BACTERIA,URINE Many /HPF (None Seen); CASTS, URINE 26-50 Hyaline Casts /LPF; MUCUS,URINE Few Strands
[2017-07-13] MEDS: cefTRIAXone 1 GM in SODIUM CHLORIDE 0.9% MINIBAG 100 ML IV SCH (20:28)
[2017-07-13] MEDS: ENOXAPARIN 30 MG/0.3 ML SYRINGE SUBQ SCH (21:05)
[2017-07-14] MEDS: oxyCOD/ACETAMIN 5 MG/325 MG TABLET PO PRN ×5 (00:30→18:33)
[2017-07-14] MEDS: KETOROLAC 15 MG/ML VIAL IVP PRN ×4 (03:16→21:59)
[2017-07-14] MEDS: SODIUM CHLORIDE FLUSH 0.9% 10 ML SYRINGE IVP PRN ×5 (03:17→16:38)
[2017-07-14] MEDS: IPRATROPIUM/ALBUTEROL 3 ML NEB INH SCH ×6 (04:03→20:43)
[2017-07-14] MEDS: PANTOPRAZOLE 40 MG VIAL IVP SCH ×2 (05:51→16:38)
[2017-07-14] MEDS: SODIUM CHLORIDE FLUSH 0.9% 10 ML SYRINGE IVP SCH ×2 (05:51→22:51)
[2017-07-14 06:57] LABS: CALCIUM 10.5 mg/dL (8.5-10.3); CREATININE 2.1 mg/dL (0.4-1.0)
[2017-07-14] MEDS: HYDROmorphone 0.5 MG/0.5 ML SYRINGE IVP PRN ×4 (08:37→19:52)
[2017-07-14] MEDS: D5NS W/20 MEQ KCL 1,000 ML IV SCH ×2 (09:24→22:04)
[2017-07-14] MEDS: POLYETHYLENE GLYCOL 3350 17 GM PACKET PO SCH (09:44)
[2017-07-14] MEDS: ALLOPURINOL 100 MG TABLET PO SCH (09:45)
[2017-07-14] MEDS: AZITHROMYCIN 250 MG TABLET PO SCH (09:45)
[2017-07-14] MEDS: guaiFENesin 600 MG TABLET PO SCH ×2 (09:45→22:00)
[2017-07-14] MEDS: ENOXAPARIN 30 MG/0.3 ML SYRINGE SUBQ SCH (09:45)
--- NOTE | 2017-07-14 13:01 | PROVIDER PROGRESS NOTE ---
Assessment/Plan - Problem List (1) Sternal fracture Qualifiers: Encounter type: subsequent encounter Sternal location: unspecified Fracture type: closed Assessment/Plan: Continue pain meds and pulmonary toilet. (2) CAP (community acquired pneumonia) Qualifiers: Laterality: unspecified laterality Qualified Code(s): J18.9 - Pneumonia, unspecified organism Assessment/Plan: Stable oxygenation and resp. rate. Continue iv antibiotics. (3) Status post fall Assessment/Plan: I suspect her poor gait and dehydration was the cause of the fall. Will assess orthostatic VS, after rehydrated. Placement to SNF or [facility] placemant to be discussed whn and son arrive today. (4) Confusion Assessment/Plan: As in #3 above. Also, will check thyroid, B12, folate, TFTs for reversable treatable causes of confusion. (5) Hypotension Assessment/Plan: Pt still has borderline low BP. Will start iv hydration. (6) Urinary tract infection Assessment/Plan: iv antibiotics for pneumonia are also treating UTI. (7) Acute on chronic kidney failure Assessment/Plan: Pre-renal azotemia suspected from volume depletion, probably since she cant hydrate adequately po with sternal pain during arm movements. Will start iv fluids. Monitor BP and labs. - Current Meds Current Meds: Current Medications Generic Name Dose Route Start Last Admin Trade Name Freq PRN Reason Stop Dose Admin Albuterol/Ipratropium 3 ml 07/12/17 21:00 07/14/17 07:56 Duoneb INH 3 ml RTQID KATHERINE Administration Allopurinol 100 mg 07/13/17 09:00 07/14/17 09:45 Zyloprim PO 100 mg DAILY KATHERINE Administration Azithromycin 500 mg 07/12/17 09:00 07/14/17 09:45 Zithromax PO 500 mg DAILY KATHERINE Administration Enoxaparin Sodium 30 mg 07/13/17 22:00 07/14/17 09:45 Lovenox SUBQ 30 mg DAILY KATHERINE Administration Guaifenesin 600 mg 07/12/17 21:00 07/14/17 09:45 Mucinex PO 600 mg BID KATHERINE Administration Hydromorphone HCl 0.5 mg 07/12/17 18:20 07/14/17 12:20 Dilaudid Inj Syringe IVP 0.5 mg Q2H PRN Administration Pain 8 to 10 Ceftriaxone Sodium 1 gm/ 100 mls @ 200 mls/hr 07/12/17 21:00 07/13/17 21:00 Sodium Chloride IV Infused Q24H KATHERINE Infusion Potassium Chloride/Dextrose/Sod Cl 1,000 mls @ 83.333 mls/hr 07/14/17 09:00 07/14/17 09:24 IV 83.333 mls/hr .Q12H KATHERINE Administration Ketorolac Tromethamine 15 mg 07/12/17 20:07 07/14/17 09:23 Toradol Inj IVP 07/17/17 20:06 15 mg Q6HR PRN Administration PAIN Lidocaine 1 patch 07/12/17 20:08 07/13/17 12:00 Lidoderm Patch TOP 1 patch DAILY PRN Administration PAIN Oxycodone/Acetaminophen 1 tab 07/12/17 20:06 07/14/17 09:46 Percocet 5 Mg/325 Mg PO 1 tab Q4HR PRN Administration PAIN Pantoprazole Sodium 40 mg 07/12/17 19:00 07/14/17 05:51 Protonix IVP 40 mg BIDAC KATHERINE Administration Polyethylene Glycol 17 gm 07/13/17 09:00 07/14/17 09:44 Miralax PO 17 gm DAILY KATHERINE Administration Prochlorperazine Edisylate 10 mg 07/12/17 18:20 07/12/17 20:39 Compazine Inj IVP 10 mg Q6HR PRN Administration Nausea / Vomiting Sodium Chloride 10 ml 07/12/17 18:20 07/14/17 12:20 Normal Saline Flush 0.9% IVP 10 ml PRN PRN Administration NEEDED PER PROVIDER ORDERS Sodium Chloride 10 ml 07/13/17 01:00 07/14/17 05:51 Normal Saline Flush 0.9% IVP 10 ml 0100,0900,1700 KATHERINE Administration - Lab Result Fish Bone Diagrams: 07/13/17 05:44 07/14/17 06:30 - Additional Planning My Orders: My Active Orders 07/13/17 12:42 Miscellaenous Nursing Order [RC] QSHIFT 07/14/17 09:00 D5ns W/20 Meq KCl 1,000 ml IV 83.333 mls/hr 07/15/17 05:00 BMP - BASIC METABOLIC PANEL [CHEM] DAILYLAB CBC - COMP BLD CT W/AUTO DIFF [HEME] DAILYLAB 07/16/17 05:00 BMP - BASIC METABOLIC PANEL [CHEM] DAILYLAB CBC - COMP BLD CT W/AUTO DIFF [HEME] DAILYLAB 07/17/17 05:00 BMP - BASIC METABOLIC PANEL [CHEM] DAILYLAB CBC - COMP BLD CT W/AUTO DIFF [HEME] DAILYLAB 07/18/17 05:00 BMP - BASIC METABOLIC PANEL [CHEM] DAILYLAB CBC - COMP BLD CT W/AUTO DIFF [HEME] DAILYLAB Subjective - Subjective Patient Reports: Feeling Better, Resting Comfortably Nursing Reports: Other (Pt had severe sternal pain, needed Dilaudid.) Objective Vital Signs: Vital Signs - 24 hr 07/13/17 07/13/17 07/13/17 16:00 18:15 19:31 Temperature 36.6 C 36.7 C Heart Rate 55 L Heart Rate [ Brachial] Heart Rate [ 57 L 74 Monitoring electrodes] Respiratory 15 18 16 Rate Blood Pressure 106/86 H 143/78 H [Left Brachial artery] Blood Pressure [Right Brachial artery] O2 Saturation 100 95 07/13/17 07/14/17 07/14/17 23:06 00:36 03:18 Temperature 36.6 C 36.6 C 36.9 C Heart Rate Heart Rate [ 57 L Brachial] Heart Rate [ 61 Monitoring electrodes] Respiratory 12 18 Rate Blood Pressure 125/88 H [Left Brachial artery] Blood Pressure 122/83 H [Right Brachial artery] O2 Saturation 96 95 07/14/17 07/14/17 07/14/17 05:48 07:56 07:57 Temperature 36.3 C L 36.4 C L Heart Rate 54 L Heart Rate [ 66 67 Brachial] Heart Rate [ Monitoring electrodes] Respiratory 18 16 18 Rate Blood Pressure 144/72 H 143/71 H [Left Brachial artery] Blood Pressure [Right Brachial artery] O2 Saturation 96 96 Oxygen O2 Source [With Activity] Room air O2 Source Room air I&O (Last 24 Hrs): Intake and Output Totals x24h 07/12/17 07/13/17 07/14/17 23:59 23:59 23:59 Intake Total 400 1650 180 Output Total 300 Balance 400 1350 180 General: Alert, No acute distress HEENT: Mucous membr. moist/pink Neck: Supple, No JVD Neuro: Disoriented Cardiovascular: No murmurs Respiratory: No respiratory distress, Breath sounds nml Abdomen: Soft Extremities: No edema, Other (Has changes of RA.) - Results Results: Laboratory Results WBC 7.2 x10^3/uL (4.8-10.8) 07/13/17 05:44 RBC 3.80 10^6/uL (4.20-5.40) L 07/13/17 05:44 Hgb 11.5 g/dL (12.0-16.0) L 07/13/17 05:44 Hct 35.7 % (37.0-47.0) L 07/13/17 05:44 MCV 93.8 fL (81.0-99.0) 07/13/17 05:44 MCH 30.3 pg (27.0-31.0) 07/13/17 05:44 MCHC 32.3 g/dL (32.0-36.0) 07/13/17 05:44 RDW 14.4 % (12.0-15.0) 07/13/17 05:44 Plt Count 151 10^3/uL (130-450) 07/13/17 05:44 MPV 7.4 fL (7.9-10.8) L 07/13/17 05:44 Neut # 4.9 10^3/uL (1.5-6.6) 07/13/17 05:44 Lymph # 0.8 10^3/uL (1.5-3.5) L 07/13/17 05:44 [place] # 0.7 10^3/uL (0.0-1.0) 07/13/17 05:44 Eos # 0.9 10^3/uL (0.0-0.7) H 07/13/17 05:44 Baso # 0.0 10^3/uL (0.0-0.1) 07/13/17 05:44 Absolute Nucleated RBC 0.00 x10^3/uL 07/13/17 05:44 Nucleated RBC % 0.1 /100WBC 07/13/17 05:44 Sodium 136 mmol/L (135-145) 07/14/17 06:30 Potassium 3.6 mmol/L (3.5-5.0) 07/14/17 06:30 Chloride 104 mmol/L (101-111) 07/14/17 06:30 Carbon Dioxide 25 mmol/L (21-32) 07/14/17 06:30 Anion Gap 7.0 (6-13) 07/14/17 06:30 BUN 35 mg/dL (6-20) H 07/14/17 06:30 Creatinine 2.1 mg/dL (0.4-1.0) H 07/14/17 06:30 Estimated GFR (MDRD) 22 (>89) L 07/14/17 06:30 Glucose 129 mg/dL (70-100) H 07/14/17 06:30 POC Whole Bld Glucose 105 mg/dL (70 - 100) H 07/12/17 21:54 Calcium 10.5 mg/dL (8.5-10.3) H 07/14/17 06:30 Troponin I < 0.04 ng/mL (<0.49) 07/12/17 21:59 Urine Color YELLOW 07/13/17 16:05 Urine Clarity HAZY (CLEAR) 07/13/17 16:05 Urine pH 5.0 PH (5.0-7.5) 07/13/17 16:05 Ur Specific [place] >=1.030 (1.002-1.030) H 07/13/17 16:05 Urine Protein TRACE mg/dL (NEGATIVE) 07/13/17 16:05 Urine Glucose (UA) NEGATIVE mg/dL (NEGATIVE) 07/13/17 16:05 Urine Ketones NEGATIVE mg/dL (NEGATIVE) 07/13/17 16:05 Urine Occult Blood NEGATIVE (NEGATIVE) 07/13/17 16:05 Urine Nitrite NEGATIVE (NEGATIVE) 07/13/17 16:05 Urine Bilirubin NEGATIVE (NEGATIVE) 07/13/17 16:05 Urine Urobilinogen 0.2 (NORMAL) E.U./dL (NORMAL) 07/13/17 16:05 Ur Leukocyte Esterase TRACE (NEGATIVE) H 07/13/17 16:05 Urine RBC 0-5 /HPF (0-5) 07/13/17 16:05 Urine WBC 11-25 /HPF (0-5) H 07/13/17 16:05 Urine WBC Clumps PRESENT 07/13/17 16:05 Ur Epithelial Cells FEW Transitional /HPF (<= Few) FEW Renal Tubular /HPF (<= Few) 07/13/17 16:05 Ur Epithelial Cells FEW Transitional /HPF (<= Few) FEW Renal Tubular /HPF (<= Few) 07/13/17 16:05 Ur Squamous Epith Cells MOD Squamous (<= Few) H 07/13/17 16:05 Urine Bacteria Many /HPF (None Seen) H 07/13/17 16:05 Urine Casts 26-50 Hyaline Casts /LPF 07/13/17 16:05 Urine Mucus Few Strands 07/13/17 16:05 Urine Culture Comments NOT INDICATED 07/13/17 16:05 - Procedures Procedures: Procedures INSERTION OF INFUSION DEV INTO SUP VENA CAVA, PERC APPROACH (04/20/15)
[2017-07-14] MEDS: LIDOCAINE PATCH 5% TOP PRN (13:57)
[2017-07-14 14:16] LABS: THYROID STIMULATING HORMONE 2.2 uIU/mL (0.34-5.60)
[2017-07-14 14:18] LABS: FREE T4 (FREE THYROXINE) 1.08 ng/dL (0.58-1.64)
[2017-07-14 14:27] LABS: FOLATE 22.28 ng/mL (5.90 - >24.8)
[2017-07-14] MEDS: cefTRIAXone 1 GM in SODIUM CHLORIDE 0.9% MINIBAG 100 ML IV SCH (22:00)
[2017-07-15] MEDS: SODIUM CHLORIDE FLUSH 0.9% 10 ML SYRINGE IVP SCH ×3 (00:32→16:51)
[2017-07-15] MEDS: HYDROmorphone 0.5 MG/0.5 ML SYRINGE IVP PRN ×3 (02:03→20:03)
[2017-07-15] MEDS: SODIUM CHLORIDE FLUSH 0.9% 10 ML SYRINGE IVP PRN ×5 (02:04→16:51)
[2017-07-15] MEDS: oxyCOD/ACETAMIN 5 MG/325 MG TABLET PO PRN ×2 (03:35→11:01)
[2017-07-15 05:23] LABS: BASOPHILS # (AUTO) 0.1 10^3/uL (0.0-0.1); BASOPHILS % (AUTO) 0.9 %; EOSINOPHILS # (AUTO) 0.8 10^3/uL (0.0-0.7); EOSINOPHILS % (AUTO) 12.8 %; HGB - HEMOGLOBIN 11.2 g/dL (12.0-16.0); LYMPHOCYTES # (AUTO) 1.2 10^3/uL (1.5-3.5); LYMPHOCYTES % (AUTO) 18.4 %; MEAN CORPUSCULAR HEMOGLOBIN 30.1 pg (27.0-31.0); MEAN CORPUSCULAR HGB CONC 32.1 g/dL (32.0-36.0); MEAN CORPUSCULAR VOLUME 93.8 fL (81.0-99.0); MEAN PLATELET VOLUME 7.5 fL (7.9-10.8); MONOCYTES # (AUTO) 0.6 10^3/uL (0.0-1.0); MONOCYTES % (AUTO) 9.2 %; NEUTROPHILS # (AUTO) 3.8 10^3/uL (1.5-6.6); NEUTROPHILS % (AUTO) 58.7 %; PLT - PLATELET COUNT 174 10^3/uL (130-450); RED BLOOD COUNT 3.72 10^6/uL (4.20-5.40); RED CELL DISTRIBUTION WIDTH 14.5 % (12.0-15.0); WHITE BLOOD COUNT 6.6 x10^3/uL (4.8-10.8)
[2017-07-15 05:40] LABS: ALBUMIN/GLOBULIN RATIO 1.3 (1.0-2.2); BILIRUBIN,TOTAL 0.6 mg/dL (0.2-1.0); CALCIUM 10.2 mg/dL (8.5-10.3); TOTAL PROTEIN 5.4 g/dL (6.7-8.2)
[2017-07-15] MEDS: PANTOPRAZOLE 40 MG VIAL IVP SCH ×2 (06:09→16:51)
[2017-07-15] MEDS: IPRATROPIUM/ALBUTEROL 3 ML NEB INH SCH (07:51)
[2017-07-15] MEDS: POLYETHYLENE GLYCOL 3350 17 GM PACKET PO SCH (09:05)
[2017-07-15] MEDS: ENOXAPARIN 30 MG/0.3 ML SYRINGE SUBQ SCH (09:05)
[2017-07-15] MEDS: AZITHROMYCIN 250 MG TABLET PO SCH (09:07)
[2017-07-15] MEDS: guaiFENesin 600 MG TABLET PO SCH ×2 (09:07→22:35)
[2017-07-15] MEDS: ALLOPURINOL 100 MG TABLET PO SCH (09:07)
[2017-07-15] MEDS ORDERED: IPRATROPIUM/ALBUTEROL 3 ML NEB INH PRN (10:02)
[2017-07-15] MEDS: D5NS W/20 MEQ KCL 1,000 ML IV SCH ×2 (11:01→18:55)
--- NOTE | 2017-07-15 13:08 | PROVIDER PROGRESS NOTE ---
Assessment/Plan - Problem List (1) Sternal fracture Qualifiers: Encounter type: subsequent encounter Sternal location: unspecified Fracture type: closed Assessment/Plan: Continue plan for pain control and good pulmonary toilet using Incentive Spirometry and splinting chest pillow. (2) Acute on chronic kidney failure Qualifiers: Chronic kidney disease stage: stage 3 (moderate) Assessment/Plan: Patient got gentle hydration and creat only improved from 2.1 to 2.0. Her ARF may be worsened by Ketolorac, ordered for pain. Narcotics for sternal pain also not preferred due to dementia. Will watch renal function closely and adjust meds and fluids. (3) CAP (community acquired pneumonia) Qualifiers: Laterality: unspecified laterality Qualified Code(s): J18.9 - Pneumonia, unspecified organism Assessment/Plan: Continue empiric treatment with iv antibiotics for a 7-10 day course. No sputum was produced and blood cultures are neg to date. (4) Urinary tract infection Assessment/Plan: On iv antibiotics (5) Status post fall Assessment/Plan: PT has determined that she has poor gait and she needs PT rehab. The family is deciding about rehab vs placement. (6) Confusion Assessment/Plan: The patient will need outpatient W/U and then folowup for management of dementia (which was never previously disgnosed, per ). Labs for vitamin and thyroid deficiency. (7) Hypotension Assessment/Plan: Resolved - Current Meds Current Meds: Current Medications Generic Name Dose Route Start Last Admin Trade Name Freq PRN Reason Stop Dose Admin Allopurinol 100 mg 07/13/17 09:00 07/15/17 09:07 Zyloprim PO 100 mg DAILY KATHERINE Administration Enoxaparin Sodium 30 mg 07/13/17 22:00 07/15/17 09:05 Lovenox SUBQ 30 mg DAILY KATHERINE Administration Guaifenesin 600 mg 07/12/17 21:00 07/15/17 09:07 Mucinex PO 600 mg BID KATHERINE Administration Hydromorphone HCl 0.5 mg 07/12/17 18:20 07/15/17 02:03 Dilaudid Inj Syringe IVP 0.5 mg Q2H PRN Administration Pain 8 to 10 Ceftriaxone Sodium 1 gm/ 100 mls @ 200 mls/hr 07/12/17 21:00 07/14/17 22:52 Sodium Chloride IV Infused Q24H KATHERINE Infusion Potassium Chloride/Dextrose/Sod Cl 1,000 mls @ 125 mls/hr 07/15/17 07:58 11:01 IV 125 mls/hr .Q8H KATHERINE Administration Ketorolac Tromethamine 15 mg 07/12/17 20:07 07/14/17 21:59 Toradol Inj IVP 07/17/17 20:06 15 mg Q6HR PRN Administration PAIN Lidocaine 1 patch 07/12/17 20:08 07/14/17 13:57 Lidoderm Patch TOP 1 patch DAILY PRN Administration PAIN Oxycodone/Acetaminophen 1 tab 07/12/17 20:06 07/15/17 11:01 Percocet 5 Mg/325 Mg PO 1 tab Q4HR PRN Administration PAIN Pantoprazole Sodium 40 mg 07/12/17 19:00 07/15/17 06:09 Protonix IVP 40 mg BIDAC KATHERINE Administration Polyethylene Glycol 17 gm 07/13/17 09:00 07/15/17 09:05 Miralax PO 17 gm DAILY KATHERINE Administration Prochlorperazine Edisylate 10 mg 07/12/17 18:20 07/12/17 20:39 Compazine Inj IVP 10 mg Q6HR PRN Administration Nausea / Vomiting Sodium Chloride 10 ml 07/12/17 18:20 07/15/17 06:11 Normal Saline Flush 0.9% IVP 10 ml PRN PRN Administration NEEDED PER PROVIDER ORDERS Sodium Chloride 10 ml 07/13/17 01:00 07/15/17 09:14 Normal Saline Flush 0.9% IVP Not Given 0100,0900,1700 KATHERINE - Lab Result Fish Bone Diagrams: 07/15/17 05:04 07/15/17 05:04 - Additional Planning My Orders: My Active Orders 07/15/17 Clinical Swallow Evaluation [ST] Routine 07/15/17 07:58 D5ns W/20 Meq KCl 1,000 ml IV 125 mls/hr 07/15/17 10:02 Ipratropium/Albuterol [Duoneb] 3 ml INH RTQID PRN 07/16/17 05:00 CBC - COMP BLD CT W/AUTO DIFF [HEME] DAILYLAB CMP [COMPREHENSIVE METABOLIC PANEL] [CHEM] DAILYLAB 07/17/17 05:00 CBC - COMP BLD CT W/AUTO DIFF [HEME] DAILYLAB 07/18/17 05:00 CBC - COMP BLD CT W/AUTO DIFF [HEME] DAILYLAB Subjective - Subjective Patient Reports: Feeling Better, Resting Comfortably Nursing Reports: Other (Asking for pain meds. Cannot handle utensils to eat, eats food with her fingers.) Objective Vital Signs: Vital Signs - 24 hr 07/14/17 07/14/17 07/14/17 13:46 15:18 16:32 Temperature 36.4 C L 36.5 C Heart Rate 58 L Heart Rate [ Activity] Heart Rate [ 62 54 L Brachial] Heart Rate [ Supine] Respiratory 18 16 16 Rate Respiratory Rate [With Activity] Blood Pressure [Activity] Blood Pressure 151/67 H 99/52 L [Left Brachial artery] Blood Pressure [Right Brachial artery] Blood Pressure [Supine] O2 Saturation 95 97 O2 Saturation [ With Activity] 07/14/17 07/14/17 07/14/17 18:00 20:44 21:04 Temperature 36.8 C Heart Rate 67 Heart Rate [ Activity] Heart Rate [ 62 62 Brachial] Heart Rate [ Supine] Respiratory 16 18 18 Rate Respiratory Rate [With Activity] Blood Pressure [Activity] Blood Pressure [Left Brachial artery] Blood Pressure 149/78 H 143/64 H [Right Brachial artery] Blood Pressure [Supine] O2 Saturation 96 96 O2 Saturation [ With Activity] 07/14/17 07/15/17 07/15/17 23:40 00:34 05:15 Temperature 36.0 C L 36.9 C 36.5 C Heart Rate Heart Rate [ Activity] Heart Rate [ 79 88 Brachial] Heart Rate [ Supine] Respiratory 20 20 Rate Respiratory Rate [With Activity] Blood Pressure [Activity] Blood Pressure 129/74 [Left Brachial artery] Blood Pressure 159/83 H [Right Brachial artery] Blood Pressure [Supine] O2 Saturation 96 93 O2 Saturation [ With Activity] 07/15/17 07/15/17 07/15/17 07:44 09:54 10:23 Temperature 36.6 C Heart Rate 54 L Heart Rate [ 59 L Activity] Heart Rate [ 76 Brachial] Heart Rate [ 65 Supine] Respiratory 16 20 Rate Respiratory 22 Rate [With Activity] Blood Pressure 123/91 H [Activity] Blood Pressure 122/91 H [Left Brachial artery] Blood Pressure [Right Brachial artery] Blood Pressure 151/82 H [Supine] O2 Saturation 99 O2 Saturation [ 95 With Activity] Oxygen O2 Source [With Activity] Room air O2 Source Room air I&O (Last 24 Hrs): Intake and Output Totals x24h 07/13/17 07/14/17 07/15/17 23:59 23:59 23:59 Intake Total 1650 1380 1180 Output Total 300 525 Balance 1350 1380 655 General: No acute distress HEENT: Mucous membr. moist/pink Neck: Supple Neuro: Disoriented Cardiovascular: Regular rate, No murmurs Respiratory: No respiratory distress Abdomen: Soft Extremities: No edema - Results Results: Laboratory Results WBC 6.6 x10^3/uL (4.8-10.8) 07/15/17 05:04 RBC 3.72 10^6/uL (4.20-5.40) L 07/15/17 05:04 Hgb 11.2 g/dL (12.0-16.0) L 07/15/17 05:04 Hct 34.9 % (37.0-47.0) L 07/15/17 05:04 MCV 93.8 fL (81.0-99.0) 07/15/17 05:04 MCH 30.1 pg (27.0-31.0) 07/15/17 05:04 MCHC 32.1 g/dL (32.0-36.0) 07/15/17 05:04 RDW 14.5 % (12.0-15.0) 07/15/17 05:04 Plt Count 174 10^3/uL (130-450) 07/15/17 05:04 MPV 7.5 fL (7.9-10.8) L 07/15/17 05:04 Neut # 3.8 10^3/uL (1.5-6.6) 07/15/17 05:04 Lymph # 1.2 10^3/uL (1.5-3.5) L 07/15/17 05:04 [place] # 0.6 10^3/uL (0.0-1.0) 07/15/17 05:04 Eos # 0.8 10^3/uL (0.0-0.7) H 07/15/17 05:04 Baso # 0.1 10^3/uL (0.0-0.1) 07/15/17 05:04 Absolute Nucleated RBC 0.01 x10^3/uL 07/15/17 05:04 Nucleated RBC % 0.1 /100WBC 07/15/17 05:04 Sodium 140 mmol/L (135-145) 07/15/17 05:04 Potassium 4.1 mmol/L (3.5-5.0) 07/15/17 05:04 Chloride 109 mmol/L (101-111) 07/15/17 05:04 Carbon Dioxide 24 mmol/L (21-32) 07/15/17 05:04 Anion Gap 7.0 (6-13) 07/15/17 05:04 BUN 34 mg/dL (6-20) H 07/15/17 05:04 Creatinine 2.0 mg/dL (0.4-1.0) H 07/15/17 05:04 Estimated GFR (MDRD) 24 (>89) L 07/15/17 05:04 Glucose 117 mg/dL (70-100) H 07/15/17 05:04 POC Whole Bld Glucose 105 mg/dL (70 - 100) H 07/12/17 21:54 Calcium 10.2 mg/dL (8.5-10.3) 07/15/17 05:04 Total Bilirubin 0.6 mg/dL (0.2-1.0) 07/15/17 05:04 AST 15 IU/L (10-42) 07/15/17 05:04 ALT 10 IU/L (10-60) 07/15/17 05:04 Alkaline Phosphatase 71 IU/L (42-121) 07/15/17 05:04 Troponin I < 0.04 ng/mL (<0.49) 07/12/17 21:59 Total Protein 5.4 g/dL (6.7-8.2) L 07/15/17 05:04 Albumin 3.0 g/dL (3.2-5.5) L 07/15/17 05:04 Globulin 2.4 g/dL (2.1-4.2) 07/15/17 05:04 Albumin/Globulin Ratio 1.3 (1.0-2.2) 07/15/17 05:04 Vitamin B12 230 pg/mL (180-914) 07/14/17 06:30 Folate 22.28 ng/mL (5.90 - >24.8) 07/14/17 06:30 TSH 2.20 uIU/mL (0.34-5.60) 07/14/17 06:30 Free T4 1.08 ng/dL (0.58-1.64) 07/14/17 06:30 Free T3 pg/mL 2.64 pg/mL (2.5-3.9) 07/14/17 06:30 Urine Color YELLOW 07/13/17 16:05 Urine Clarity HAZY (CLEAR) 07/13/17 16:05 Urine pH 5.0 PH (5.0-7.5) 07/13/17 16:05 Ur Specific [place] >=1.030 (1.002-1.030) H 07/13/17 16:05 Urine Protein TRACE mg/dL (NEGATIVE) 07/13/17 16:05 Urine Glucose (UA) NEGATIVE mg/dL (NEGATIVE) 07/13/17 16:05 Urine Ketones NEGATIVE mg/dL (NEGATIVE) 07/13/17 16:05 Urine Occult Blood NEGATIVE (NEGATIVE) 07/13/17 16:05 Urine Nitrite NEGATIVE (NEGATIVE) 07/13/17 16:05 Urine Bilirubin NEGATIVE (NEGATIVE) 07/13/17 16:05 Urine Urobilinogen 0.2 (NORMAL) E.U./dL (NORMAL) 07/13/17 16:05 Ur Leukocyte Esterase TRACE (NEGATIVE) H 07/13/17 16:05 Urine RBC 0-5 /HPF (0-5) 07/13/17 16:05 Urine WBC 11-25 /HPF (0-5) H 07/13/17 16:05 Urine WBC Clumps PRESENT 07/13/17 16:05 Ur Epithelial Cells FEW Transitional /HPF (<= Few) FEW Renal Tubular /HPF (<= Few) 07/13/17 16:05 Ur Epithelial Cells FEW Transitional /HPF (<= Few) FEW Renal Tubular /HPF (<= Few) 07/13/17 16:05 Ur Squamous Epith Cells MOD Squamous (<= Few) H 07/13/17 16:05 Urine Bacteria Many /HPF (None Seen) H 07/13/17 16:05 Urine Casts 26-50 Hyaline Casts /LPF 07/13/17 16:05 Urine Mucus Few Strands 07/13/17 16:05 Urine Culture Comments NOT INDICATED 07/13/17 16:05 - Procedures Procedures: Procedures INSERTION OF INFUSION DEV INTO SUP VENA CAVA, PERC APPROACH (04/20/15)
[2017-07-15] MEDS: KETOROLAC 15 MG/ML VIAL IVP PRN ×2 (13:10→20:03)
[2017-07-15] MEDS: LIDOCAINE PATCH 5% TOP PRN (13:10)
[2017-07-15] MEDS: cefTRIAXone 1 GM in SODIUM CHLORIDE 0.9% MINIBAG 100 ML IV SCH (22:34)
[2017-07-16] MEDS: SODIUM CHLORIDE FLUSH 0.9% 10 ML SYRINGE IVP SCH ×2 (01:39→08:33)
[2017-07-16] MEDS: D5NS W/20 MEQ KCL 1,000 ML IV SCH ×2 (01:42→03:04)
[2017-07-16] MEDS: oxyCOD/ACETAMIN 5 MG/325 MG TABLET PO PRN ×2 (01:52→08:28)
[2017-07-16] MEDS: HYDROmorphone 0.5 MG/0.5 ML SYRINGE IVP PRN (04:23)
[2017-07-16] MEDS: KETOROLAC 15 MG/ML VIAL IVP PRN (04:23)
[2017-07-16 06:07] LABS: BASOPHILS % (AUTO) 0.5 %; EOSINOPHILS # (AUTO) 0.9 10^3/uL (0.0-0.7); EOSINOPHILS % (AUTO) 15.2 %; HGB - HEMOGLOBIN 11.5 g/dL (12.0-16.0); LYMPHOCYTES # (AUTO) 1.6 10^3/uL (1.5-3.5); LYMPHOCYTES % (AUTO) 28.2 %; MEAN CORPUSCULAR HEMOGLOBIN 30.1 pg (27.0-31.0); MEAN CORPUSCULAR HGB CONC 32.2 g/dL (32.0-36.0); MEAN CORPUSCULAR VOLUME 93.4 fL (81.0-99.0); MEAN PLATELET VOLUME 7.3 fL (7.9-10.8); MONOCYTES # (AUTO) 0.5 10^3/uL (0.0-1.0); MONOCYTES % (AUTO) 8.6 %; NEUTROPHILS # (AUTO) 2.8 10^3/uL (1.5-6.6); NEUTROPHILS % (AUTO) 47.5 %; PLT - PLATELET COUNT 184 10^3/uL (130-450); RED BLOOD COUNT 3.81 10^6/uL (4.20-5.40); RED CELL DISTRIBUTION WIDTH 14.8 % (12.0-15.0); WHITE BLOOD COUNT 5.8 x10^3/uL (4.8-10.8)
[2017-07-16 06:28] LABS: ALBUMIN/GLOBULIN RATIO 1.1 (1.0-2.2); BILIRUBIN,TOTAL 0.5 mg/dL (0.2-1.0); CALCIUM 10.3 mg/dL (8.5-10.3); CREATININE 1.5 mg/dL (0.4-1.0); TOTAL PROTEIN 5.7 g/dL (6.7-8.2)
[2017-07-16] MEDS: PANTOPRAZOLE 40 MG VIAL IVP SCH (06:47)
[2017-07-16] MEDS: SODIUM CHLORIDE FLUSH 0.9% 10 ML SYRINGE IVP PRN (06:47)
[2017-07-16] MEDS: guaiFENesin 600 MG TABLET PO SCH (08:28)
[2017-07-16] MEDS: ALLOPURINOL 100 MG TABLET PO SCH (08:28)
[2017-07-16] MEDS: ENOXAPARIN 30 MG/0.3 ML SYRINGE SUBQ SCH (08:29)
[2017-07-16] MEDS: POLYETHYLENE GLYCOL 3350 17 GM PACKET PO SCH (08:29)
[2017-07-16 09:15] VITALS: BP 152/71
--- NOTE | 2017-07-16 11:05 | Discharge Plan ---
"Discharge Plan for SNF / [facility] - DC Plan and Transition Orders Disposition: 03 SNF DC/Xfer Condition: Fair SNF Transition Orders: Admit to: [facility] under the care of Carole Livingston is PCP Discharge Diagnosis: fall at home with sternal fracture, possible presyncope. ECHO negative. Tele negative. Troponin Negative. MRI with old lacunar infarcts and large ventricles. ?NPH pneumonia. to finish 3 more days of abx after 4 days of rocephin in hospital. Blood cultures negative. 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 Started on B12 Calcium and B12 deficiency, started on both per nutrition request. Medicare Certification: I certify that [facility] care is medically necessary on a continuing basis for any of the conditions for which she/he is receiving care during hospitalization. Notify PCP of admission and forward orders to primary provider for signature. Weight on admission and weekly. Call PCP immediately if weight increases by 5 pounds or if patient develops dyspnea, chest pain/tightness or edema. House Bowel Program: yes If no BM after 2 days, nurse may give M.O.M. 30ml PO PRN and /or ducolax Supp 1 HI and /or APRYL 250mg P.O., and/or senna 1-2 tabs PO. On day 3 nurse may give repeat above order until residents constipation is resolved. Immunizations: Annual Influenza Vaccine: yes. (between Nov 02 and June 01.) Unless allergy or already given Two-Step PPD: yes per [facility] [phone] or appropriate documentation of approved exceptions Treatments & Other Orders: Oxygen Orders: Lab Tests or X-Rays Orders: chest xray in 1 month to followup resolution of pneumonia Orthopedic Orders: none. Medications: PLEASE REFER TO THE DISCHARGE MEDICATION LIST. Insulin Orders? no Diagnosis: Diabetes Initiate hypo and hyperglycemia protocols for BG <70 and BG >375. May check BG prn for signs/symptoms of dysglycemia. Frequency of BG checks: [AC/Meal/HS] Basal Insulin: [] Lantus 100 units / ml inject subq as follows: [] [] Other: [] Correction Insulin: - Select the type of insulin below [Choose: Novolog/Humalog]100 units /ml insulin inject subq per orders indicate below [] LOW DOSE [] MODERATE DOSE [] MODERATE/HIGH DOSE [] HIGH DOSE GB UNITS GB UNITS GB UNITS GB UNITS 61-140 0 UNITS 61-140 0 UNITS 61-140 0 UNITS 61-140 0 UNITS 141-175 1 UNITS 141-175 1 UNITS 141-175 2 UNITS 141-175 3 UNITS 176-225 2 UNITS 176-225 3 UNITS 176-225 4 UNITS 176-225 5 UNITS 226-275 3 UNITS 226-275 5 UNITS 226-275 6 UNITS 226-275 7 UNITS 276-325 4 UNITS 276-325 7 UNITS 276-325 8 UNITS 276-325 9 UNITS 326-375 5 UNITS 326-375 9 UNITS 326-375 10 UNITS 326-375 11 UNITS >375 CONTACT MD >375 CONTACT MD >375 CONTACT MD >375 CONTACT MD Custom Dosing: [Choose: None/Novolog/Humalog] 100 units/ml Insulin inject subq as follows: GB Units 61-140 [] Units 141-175 [] Units 176-225 [] Units 226-275 [] Units 276-325 []Units 326-375 [] Units >375 Contact MD Allergies and Adverse Reactions: Allergies Allergy/AdvReac Type Severity Reaction Status Date / Time Penicillins Allergy Hives Verified 07/12/17 10:25 - Medications New Prescriptions: oxyCODONE/ACET 5/325 [Percocet 5 mg/325 mg] 1 tab PO Q4HR PRN #30 tablet PRN Reason: Pain Calcium Carbonate/Vitamin D3 [Calcium 500-Vit D3 600 Caplet] 1 each PO DAILY # 30 tablet Cholecalciferol (Vitamin D3) [Vitamin D] 2,000 unit PO DAILY #30 capsule Cyanocobalamin (Vitamin B-12) [Vitamin B-12 (1000 mcg sublingual)] 1,000 mcg SL DAILY #30 tab.subl Levofloxacin [Levaquin] 500 mg PO DAILY #3 tablet - Diet Type: Geriatric Texture: Regular Liquids: Thin - Therapies | Activity Therapy: Evaluation | Treat if indicated: PT, OT Rehabilitation Potential: Maximize functional status Activity: Activity as Tolerated Assistance Devices: Wheelchair, Walker Additional Instructions: Your calcium level is quite high - you need to follow up with your PMD for further evaluation of this abnormality"
--- NOTE | 2017-07-22 08:31 | DISCHARGE SUMMARY ---
Physician: Luisa Mac MD DATE OF ADMISSION: 07/12/2017 DATE OF DISCHARGE: 07/16/2017 DISCHARGE DIAGNOSES 1. Sternal fracture. 2. Fall at home. 3. Frontal lobe dementia. 4. Community-acquired pneumonia. 5. Chronic urinary tract infection. 6. Acute on chronic renal failure, stage IV. DISCHARGE MEDICATIONS 1. Percocet 5/325, one tablet every 4 hours as needed. 2. Allopurinol 100 mg daily. 3. Atenolol 25 mg tablet, 2 a day. 4. Calcium with vitamin D one daily. 5. Vitamin D3, 2000 units daily. 6. Vitamin B12, 1000 mcg sublingual daily. 7. Levaquin 500 mg p.o. daily for 3 more days only. 8. Lidoderm patch to sternum applied daily for 12 hours and remove. 9. Cozaar 100 mg daily. 10. Nitrofurantoin b.i.d. was completed before her stay. PRINCIPAL PROCEDURES 1. Chest x-ray shows increased parenchymal markings in the right upper lobe, and left lower lobe that could be infiltrate. 2. Chest CT showed acute transverse buckling junction of the mid and inferior third of the sternal body involving the anterior and posterior cortex. There was a lesser degree of buckling at the junction of the superior and mid third of the sternum. Late subacute mild T7 wedging. Acute on chronic lung disease with a small right posterior lung base infiltrate and several mildly enlarged mediastinal lymph nodes. 3. Carotid Doppler study with no hemodynamically significant stenosis. Brain MRI with no evidence of acute or subacute cerebral infarction. 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 Mild to moderate degree of chronic small vessel ischemia. Ventriculomegaly out of proportion to the degree of focal enlargement. No brain mass. 4. Echocardiogram with left ventricular systolic function normal with an ejection fraction of 65-70%. Mild global hypokinesis of LV contractility. Impaired relaxation consistent with grade 1 diastolic dysfunction. No regional wall motion abnormalities. Mild aortic valve sclerosis but no evidence of aortic stenosis. Mitral valve normal. Right ventricular systolic pressure at rest was 32 mmHg. Normal right ventricular systolic pressure less than 35 mmHg. 5. Blood cultures negative at 5 days. HOSPITAL COURSE: The patient is an 81-year-old female who lives at home with her . She is a vague historian. There is a possibility that she has quite a bit of dementia that the is compensating for because he does not seem to recognize her memory loss. In any case, she presented to the emergency room 07/08/2017, four days prior to this current admission. She fell against her washer, describes bending down, losing balance, and then falling forward and hitting her chest on the corner of the washer. In her emergency room visit that day, she had some acute kidney injury with a creatinine of 2.2. She had a UTI. She received hydration, antibiotic, and sent home to finish Macrodantin. In the last four days, she has developed excruciating unbearable chest pain, made worse with any movement and physical activities and appeared to be musculoskeletal. Her sternum and the muscles around it hurt. She came back to the emergency room with chest pain and was found to have sternal fractures as well as a mild wedging of T7. Her creatinine had improved and was down to 1.3. The case was discussed with [facility] trauma on-call. They did not advise any surgical intervention and given that this would be medical management, they did not recommend transferring the patient. It was recommended she was recommended by the surgeon that she be admitted for pain control and pulmonary toilet because she was at risk for developing pneumonia. Chest x-ray was already starting to show atelectasis. The patient was admitted and evaluated by Physical Therapy. Received pain management on a regular basis. Memory loss was definitely noted. She was treated as a community-acquired pneumonia because of the changes on chest x-ray. Because there is no idea whether this was a fall or syncope, she underwent carotid Dopplers, MRI, and echocardiogram. She was given aspirin and statin. Unfortunately, she became more confused when she was given narcotics for pain control. Social Service consulted with the about whether she should return home, or should she go to a [facility] facility for rehabilitation and improve mobility. It was decided that she should go to the [facility] facility. A new diagnosis of frontal lobe dementia is being added to her list. She will finish her antibiotics for the UTI at the [facility]. Kidney failure should be monitored in the outpatient setting. Greater than 30 minutes were spent coordinating discharge. PHYSICAL EXAMINATION ON DISCHARGE VITAL SIGNS: Temperature was 36.4, pulse 66, blood pressure 152/71, respirations 18, 98% on room air. GENERAL: She was a confused, but pleasant, tall angular, thin white female. Able to get out of her bed with assist from the aide, but needed a lot of prompting to get back in bed or sit down on a chair safely. LUNGS: Coarse tubular breath sounds and she sounded somewhat congested, but there were no crackles, rhonchi, wheezing. CARDIAC: She had a systolic ejection murmur with a regular rate and rhythm. ABDOMEN: Soft, nontender, scaphoid. She grimaced with any palpation of her ribcage. EXTREMITIES: Ankles had no edema. GENITOURINARY: She is incontinent of urine and wears a brief or a pad. NEUROLOGIC: She has generalized weakness. Again, significant memory problems. She can be prompted to get up, go to the bathroom, and to eat. cc: Carole Don M.D. TD: 07/21/2017 19:05
== END 2017-07-16 14:47 | DRG 947 ==
LOC: ED 10:15 → ICU 18:20 → MS3 07-13 23:37
PROVIDERS: ADMIT Internal Medicine; ATTEND Specialist
DX: G89.11 Acute pain due to trauma (principal); S27.321A Contusion of lung, unilateral, initial encounter; J18.9 Pneumonia, unspecified organism; S22.20XA Unspecified fracture of sternum, initial encounter for closed fracture; Z96.649 Presence of unspecified artificial hip joint; Z96.659 Presence of unspecified artificial knee joint; N39.0 Urinary tract infection, site not specified; N18.4 Chronic kidney disease, stage 4 (severe); N17.9 Acute kidney failure, unspecified; W19.XXXA Unspecified fall, initial encounter; Y92.008 Other place in unspecified non-institutional (private) residence as the place of occurrence of the external cause; G31.09 Other frontotemporal neurocognitive disorder; F02.80 Dementia in other diseases classified elsewhere, unspecified severity, without behavioral disturbance, psychotic disturbance, mood disturbance, and anxiety; W22.09XA Striking against other stationary object, initial encounter; I12.9 Hypertensive chronic kidney disease with stage 1 through stage 4 chronic kidney disease, or unspecified chronic kidney disease; Z87.440 Personal history of urinary (tract) infections; E78.5 Hyperlipidemia, unspecified; E86.0 Dehydration; I95.9 Hypotension, unspecified
CPT/HCPCS: 36415; 70551; 71046; 71250; 80048; 80053; 81001; 82607; 82652; 82746; 84439; 84443; 84481; 84484; 85025; 87040; 87086; 87150; 93005; 93306; 93880; 94640; 96374; 99283; 99284

== ENCOUNTER 2017-07-23 08:00 | Outpatient (CLI) | payer MEDICARE, OTHER ==
[2017-07-23 16:40] LABS: BASOPHILS # (AUTO) 0.1 10^3/uL (0.0-0.1); BASOPHILS % (AUTO) 0.7 %; EOSINOPHILS # (AUTO) 2.5 10^3/uL (0.0-0.7); EOSINOPHILS % (AUTO) 16.1 %; HGB - HEMOGLOBIN 12.9 g/dL (12.0-16.0); LYMPHOCYTES # (AUTO) 2.1 10^3/uL (1.5-3.5); LYMPHOCYTES % (AUTO) 13.4 %; MEAN CORPUSCULAR HEMOGLOBIN 29.4 pg (27.0-31.0); MEAN CORPUSCULAR HGB CONC 31.6 g/dL (32.0-36.0); MEAN PLATELET VOLUME 8.2 fL (7.9-10.8); MONOCYTES # (AUTO) 0.9 10^3/uL (0.0-1.0); MONOCYTES % (AUTO) 5.5 %; NEUTROPHILS # (AUTO) 10.2 10^3/uL (1.5-6.6); NEUTROPHILS % (AUTO) 64.3 %; PLT - PLATELET COUNT 212 10^3/uL (130-450); RED BLOOD COUNT 4.39 10^6/uL (4.20-5.40); RED CELL DISTRIBUTION WIDTH 14.7 % (12.0-15.0); WHITE BLOOD COUNT 15.8 x10^3/uL (4.8-10.8)
[2017-07-23 16:42] LABS: BILIRUBIN,URINE NEGATIVE (NEGATIVE); GLUCOSE, URINE (UA) NEGATIVE (NEGATIVE); KETONES,URINE (UA) NEGATIVE (NEGATIVE); LEUKOCYTE ESTERASE, URINE NEGATIVE (NEGATIVE); NITRITE,URINE NEGATIVE (NEGATIVE); OCCULT BLOOD,URINE NEGATIVE (NEGATIVE); PROTEIN,URINE TRACE mg/dL (NEGATIVE); UROBILINOGEN,URINE 0.2 (NORMAL) E.U./dL (NORMAL)
[2017-07-23 16:46] LABS: CLARITY,URINE CLEAR (CLEAR)
[2017-07-23 17:34] LABS: CREATININE 1.7 mg/dL (0.4-1.0)
[2017-07-23 17:36] LABS: CALCIUM 13.3 mg/dL (8.5-10.3)
== END 2017-07-23 08:01 | disposition home or self-care (01) ==
LOC: LAB.R 08:00
DX: I10 Essential (primary) hypertension (principal); E58 Dietary calcium deficiency; D51.9 Vitamin B12 deficiency anemia, unspecified; N39.0 Urinary tract infection, site not specified
CPT/HCPCS: 80048; 81001; 81003; 85025; 87086

== ENCOUNTER 2017-07-26 08:00 | Outpatient (CLI) | payer MEDICARE, OTHER ==
[2017-07-26 19:25] LABS: BASOPHILS # (AUTO) 0.1 10^3/uL (0.0-0.1); BASOPHILS % (AUTO) 0.8 %; EOSINOPHILS # (AUTO) 1.1 10^3/uL (0.0-0.7); EOSINOPHILS % (AUTO) 8.3 %; HGB - HEMOGLOBIN 14.2 g/dL (12.0-16.0); LYMPHOCYTES # (AUTO) 2.6 10^3/uL (1.5-3.5); LYMPHOCYTES % (AUTO) 20.2 %; MEAN CORPUSCULAR HEMOGLOBIN 29.7 pg (27.0-31.0); MEAN CORPUSCULAR HGB CONC 32.3 g/dL (32.0-36.0); MEAN PLATELET VOLUME 8.4 fL (7.9-10.8); MONOCYTES # (AUTO) 0.8 10^3/uL (0.0-1.0); MONOCYTES % (AUTO) 5.8 %; NEUTROPHILS # (AUTO) 8.5 10^3/uL (1.5-6.6); NEUTROPHILS % (AUTO) 64.9 %; PLT - PLATELET COUNT 196 10^3/uL (130-450); RED BLOOD COUNT 4.76 10^6/uL (4.20-5.40); RED CELL DISTRIBUTION WIDTH 14.6 % (12.0-15.0)
[2017-07-26 19:29] LABS: VBG PH 7.548 (7.31-7.41)
[2017-07-26 20:02] LABS: ALBUMIN/GLOBULIN RATIO 1.4 (1.0-2.2); BILIRUBIN,TOTAL 0.8 mg/dL (0.2-1.0); CREATININE 1.3 mg/dL (0.4-1.0); TOTAL PROTEIN 6.9 g/dL (6.7-8.2)
[2017-07-26 20:07] LABS: CALCIUM 13.4 mg/dL (8.5-10.3)
== END 2017-07-26 08:01 | disposition home or self-care (01) ==
LOC: LAB.R 08:00
DX: R68.89 Other general symptoms and signs (principal); J18.9 Pneumonia, unspecified organism; N39.0 Urinary tract infection, site not specified; R77.0 Abnormality of albumin; E55.9 Vitamin D deficiency, unspecified; E21.5 Disorder of parathyroid gland, unspecified; E58 Dietary calcium deficiency
CPT/HCPCS: 80053; 82306; 82330; 83970; 85025

== ENCOUNTER 2017-07-26 22:26 | Outpatient (CLI) | payer MEDICARE, OTHER | END 2017-07-26 22:27 | disposition critical access hospital (66) | LOC: EMS 22:26 | PROVIDERS: ATTEND Surgery | DX: R53.1 Weakness (principal); R53.83 Other fatigue | CPT/HCPCS: A0425; A0429 ==

== ENCOUNTER 2017-07-26 22:32 | Inpatient (IN) | payer MEDICARE, OTHER ==
[2017-07-26] MEDS ORDERED: SODIUM CHLORIDE 0.9% 1,000 ML IV ONE (22:35)
[2017-07-26 23:00] LABS: EOSINOPHILS % (AUTO) 5.2 %; HGB - HEMOGLOBIN 13.5 g/dL (12.0-16.0); LYMPHOCYTES % (AUTO) 15.1 %; MEAN CORPUSCULAR HEMOGLOBIN 30.4 pg (27.0-31.0); MEAN CORPUSCULAR VOLUME 92.2 fL (81.0-99.0); MEAN PLATELET VOLUME 7.9 fL (7.9-10.8); MONOCYTES % (AUTO) 6.4 %; NEUTROPHILS % (AUTO) 72.3 %; PLT - PLATELET COUNT 173 10^3/uL (130-450); RED BLOOD COUNT 4.45 10^6/uL (4.20-5.40)
[2017-07-26 23:01] LABS: ABNORMAL LYMPHS % (MANUAL) 0 %
[2017-07-26 23:12] LABS: ALBUMIN 3.7 g/dL (3.2-5.5); ALBUMIN/GLOBULIN RATIO 1.3 (1.0-2.2); BILIRUBIN,TOTAL 0.9 mg/dL (0.2-1.0); CREATININE 1.3 mg/dL (0.4-1.0); MAGNESIUM 1.5 mg/dL (1.7-2.8); PHOSPHORUS 2.9 mg/dL (2.5-4.6); TOTAL PROTEIN 6.6 g/dL (6.7-8.2)
[2017-07-26 23:15] LABS: CALCIUM 13.1 mg/dL (8.5-10.3)
[2017-07-26 23:34] LABS: BAND NEUTROPHILS % (MANUAL) 1 %; DIFFERENTIAL COMMENT MANUAL DIFFERENTIAL; EOSINOPHILS # (MANUAL) 0.8 10^3/uL (0-0.7); LYMPHOCYTES % (MANUAL) 14 %; MONOCYTES # (MANUAL) 1.1 10^3/uL (0.0-1.0); NEUTROPHILS # (MANUAL) 10.1 10^3/uL (1.5-6.6); NEUTROPHILS % (MANUAL) 71 %; PLATELET ESTIMATE, MANUAL NORMAL (130-450,000) (NORMAL); RBC MORPHOLOGY (MULTIPLE) NORMAL APPEARANCE (NORMAL)
--- NOTE | 2017-07-26 23:35 | XRAY Report ---
EXAM: CHEST RADIOGRAPHY EXAM DATE: 07/26/2017 10:53 PM. CLINICAL HISTORY: Fluid overload. COMPARISON: 07/12/2017. TECHNIQUE: 1 view. FINDINGS: Lungs/Pleura: Bilateral interstitial prominence again seen largely in the upper lungs and left lung b ase. No new consolidation. No vascular congestion. No pneumothorax. Mediastinum: Heart size upper normal. Aorta is tortuous. Other: No acute osseous abnormalities. IMPRESSION: 1. Diffuse interstitial abnormality without significant change. No definitive evidence for superimpos ed consolidation or vascular congestion. [facility] Referring Provider Line: [phone] SITE ID: [id number]
--- NOTE | 2017-07-27 00:02 | ED Physician Documentation ---
PD HPI ALTERED MENTAL STATUS - Stated complaint Stated Complaint: AMS - Chief complaint Chief Complaint: Neuro - History obtained from History obtained from: EMS - History of Present Illness Timing - onset: How many days ago (3) Timing - details: Gradual onset Quality / character: Less responsive, Confused Basline status: Bedbound Treatment GROUP CONTRACT ANALYST: Accucheck Similar symptoms before: Has not had sx before Recently seen: Not recently seen - Additional information Additional information: Patient is an 81 year old demented [facility] patient who is presenting to the emergency department for confusion and elevated calcium levels. According to ems and [facility] staff patient has had elevated calcium levels for the last three days. they have given 2.8 liters of fluid without a change in the levels. Upon initial evaluation in the emergency department patient denies any acute pain but she is demented and cannot elaborate on her symptoms. Review of Systems Unable to obtain: Confused, Dementia PD PAST MEDICAL HISTORY - Past Medical History Cardiovascular: None Respiratory: None Neuro: Other Endocrine/Autoimmune: None GI: Chronic diarrhea : None HEENT: None Psych: None Musculoskeletal: Osteoarthritis Derm: Other drug resistant infections - Past Surgical History General: Appendectomy Ortho: Hip replacement, Knee replacement, Other - Present Medications Home Medications: Ambulatory Orders Medication Instructions Recorded Confirmed Allopurinol 100 mg PO DAILY #0 07/16/17 07/12/17 Atenolol 25 mg PO Q2D #0 07/16/17 07/12/17 Calcium Carbonate/Vitamin D3 1 each PO DAILY #30 tablet 07/16/17 [Calcium 500-Vit D3 600 Caplet] Cholecalciferol (Vitamin D3) 2,000 unit PO DAILY #30 capsule 07/16/17 [Vitamin D] Cyanocobalamin (Vitamin B-12) 1,000 mcg SL DAILY #30 tab.subl 07/16/17 [Vitamin B-12 (1000 mcg sublingual)] Levofloxacin [Levaquin] 500 mg PO DAILY #3 tablet 07/16/17 Lidocaine Patch 5% [Lidoderm Patch] 1 patch TOP DAILY PRN patch 07/16/17 Losartan [Cozaar] 100 mg PO DAILY #0 07/16/17 07/12/17 Nitrofurantoin Monohyd/M-Cryst 100 mg PO BID 5 Days capsule 07/16/17 07/12/17 [Macrobid 100 mg Capsule] oxyCODONE/ACET 5/325 [Percocet 5 1 tab PO Q4HR PRN #30 tablet 07/16/17 mg/325 mg] - Allergies Allergies/Adverse Reactions: Allergies Allergy/AdvReac Type Severity Reaction Status Date / Time Penicillins Allergy Hives Verified 07/26/17 22:45 - Social History Does the pt smoke?: No Smoking Status: Never smoker Does the pt drink ETOH?: No Does the pt have substance abuse?: No PD ED PE NORMAL - Vitals Vital signs reviewed: Yes - General General: No acute distress - HEENT HEENT: Atraumatic - Cardiac Cardiac: RRR - Respiratory Respiratory: No respiratory distress - Abdomen Abdomen: Soft - Extremities Extremities: No edema - Neuro Eye Opening: Spontaneous PD ED PE EXPANDED - General General: Alert, Other (awake ) - HEENT HEENT: Dry mucous membranes Results - Vitals Vitals: Vital Signs - 24 hr 07/26/17 07/26/17 07/27/17 22:41 23:37 00:31 Temperature 97.9 C H Heart Rate 68 62 62 Respiratory 20 15 17 Rate Blood Pressure 147/86 H 168/95 H 174/90 H O2 Saturation 96 98 99 Oxygen O2 Source [With Activity] Room air O2 Source Room air - EKG (time done) 2254 Rate: Rate (enter#) (67) Rhythm: NSR [place]: Normal Intervals: Normal [place] Compare to prior EKG: Unchanged from prior EKG Computer interpretation: Disagree with computer - Labs Labs: Laboratory Tests 07/26/17 07/26/17 07/26/17 22:45 22:45 22:45 WBC 14.0 H RBC 4.45 Hgb 13.5 Hct 41.1 MCV 92.2 MCH 30.4 MCHC 33.0 RDW 14.0 Plt Count 173 MPV 7.9 Neut # Not Reportable Lymph # Not Reportable [place] # Not Reportable Eos # Not Reportable Baso # Not Reportable Absolute Nucleated RBC Not Reportable Total Counted 100 Band Neuts % (Manual) 1 Abnorm Lymph % (Manual) 0 Nucleated RBC % Not Reportable Neutrophils # (Manual) 10.1 H Lymphocytes # (Manual) 2.0 Monocytes # (Manual) 1.1 H Eosinophils # (Manual) 0.8 H Basophils # (Manual) 0.0 Differential Comment MANUAL DIFFERENTIAL Platelet Estimate NORMAL (130-450,000) RBC Morph Micro Appear NORMAL APPEARANCE Sodium 137 Potassium 4.0 Chloride 103 Carbon Dioxide 26 Anion Gap 8.0 BUN 33 H Creatinine 1.3 H Estimated GFR (MDRD) 39 L Glucose 111 H Calcium 13.1 H* Phosphorus 2.9 Magnesium 1.5 L Total Bilirubin 0.9 AST 15 ALT 12 Alkaline Phosphatase 99 Total Creatine Kinase 26 Troponin I 0.04 Total Protein 6.6 L Albumin 3.7 Globulin 2.9 Albumin/Globulin Ratio 1.3 Lipase 39 TSH PTH Intact 07/26/17 07/26/17 22:45 22:45 WBC RBC Hgb Hct MCV MCH MCHC RDW Plt Count MPV Neut # Lymph # [place] # Eos # Baso # Absolute Nucleated RBC Total Counted Band Neuts % (Manual) Abnorm Lymph % (Manual) Nucleated RBC % Neutrophils # (Manual) Lymphocytes # (Manual) Monocytes # (Manual) Eosinophils # (Manual) Basophils # (Manual) Differential Comment Platelet Estimate RBC Morph Micro Appear Sodium Potassium Chloride Carbon Dioxide Anion Gap BUN Creatinine Estimated GFR (MDRD) Glucose Calcium Phosphorus Magnesium Total Bilirubin AST ALT Alkaline Phosphatase Total Creatine Kinase Troponin I Total Protein Albumin Globulin Albumin/Globulin Ratio Lipase TSH 1.80 PTH Intact 143 H PD MEDICAL DECISION MAKING - ED course Complexity details: reviewed old records, reviewed results, re-evaluated patient , considered differential, d/w service loss control consultant ED course: patient was seen and examined at bedside. IV access was gained and labs were drawn. ekg was performed and showed nsr. Patient's labs did reveal a calcium of 13.1, Hospitalist was contacted and the case was discussed with her. patient 's [facility] notes were reviewed and it appears that that patient had been getting daily calcium. ptaient was admitted to the inpatient service for further evaluation and care. Departure - Departure Disposition: [facility] DC/Xfer Clinical Impression: Hypernatremia Condition: Stable
[2017-07-27] MEDS ORDERED: ACETAMINOPHEN 325 MG TABLET PO PRN (00:43)
[2017-07-27] MEDS ORDERED: oxyCOD/ACETAMIN 5 MG/325 MG TABLET PO PRN (00:47)
[2017-07-27] MEDS ORDERED: ATENOLOL 25 MG TABLET PO SCH (01:00)
[2017-07-27] MEDS ORDERED: D5.45NS W/20 MEQ KCL 1,000 ML IV SCH (01:00)
[2017-07-27] MEDS: MAGNESIUM SULFATE 2 GRAM 2 GM/50 ML BAG IV SCH ×2 (02:54→06:49)
[2017-07-27] MEDS: SODIUM CHLORIDE FLUSH 0.9% 10 ML SYRINGE IVP SCH ×3 (03:39→15:56)
[2017-07-27 06:06] LABS: ALBUMIN 3.3 g/dL (3.2-5.5); ALBUMIN/GLOBULIN RATIO 1.3 (1.0-2.2); ALKALINE PHOSPHATASE 101 IU/L (42-121); ALT ALANINE AMINOTRANSFERASE 11 IU/L (10-60); AST ASPARTATE AMINOTRANSFERASE 15 IU/L (10-42); BUN - BLOOD UREA NITROGEN 30 mg/dL (6-20); CARBON DIOXIDE - CO2 24 mmol/L (21-32); CHLORIDE 104 mmol/L (101-111); CREATININE 1.3 mg/dL (0.4-1.0); GFR - MDRD 39 (>89); GLUCOSE 196 mg/dL (70-100); SODIUM 134 mmol/L (135-145); TOTAL PROTEIN 5.9 g/dL (6.7-8.2)
--- NOTE | 2017-07-27 06:10 | HISTORY & PHYSICAL EXAMINATION ---
Chief Complaint - Chief Complaint Chief Complaint: Increased confusion per [place] staff History of Present Illness - Admitted From Admitted From:: SNF - History Obtained From History obtained from: hospital records, SNF records, ED physician Exam Limitations: Pt has advanced dementia - History of Present Illness HPI Comment/Other: Mrs. Keisha Hart is a pleasantly demented 81-year-old female with past medical history significant for dementia, pneumonia, gout, frequent UTIs, hypertension, hyperlipidemia, and macrocytic anemia. She was brought to the emergency department after staff at the emergency custodial noted that she had an elevated calcium and gave her fluids for 3 days with little change in her calcium levels. Unfortunately, they failed to notice that they were administering calcium daily. She presents with a calcium level of 13.6 which was brought down to 13.1 in the emergency department. We will admit her overnight and place her on IV fluids and recheck her calcium levels in the morning. 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 Living arrangement: group home Living Situation: With caregiver(s) - Substance History Use: Uses substance without health or social issues: NONE Abuse: Recurrent use of substance despite neg consequences: NONE Dependence: Experiences withdrawal or developed tolerances: NONE - POLST Patient has POLST: Yes POLST Status: DNR Meds/Allgy - Home Medications Home Medications: Ambulatory Orders Medication Instructions Recorded Confirmed Allopurinol 100 mg PO DAILY #0 07/16/17 07/12/17 Atenolol 25 mg PO Q2D #0 07/16/17 07/12/17 Calcium Carbonate/Vitamin D3 1 each PO DAILY #30 tablet 07/16/17 [Calcium 500-Vit D3 600 Caplet] Cholecalciferol (Vitamin D3) 2,000 unit PO DAILY #30 capsule 07/16/17 [Vitamin D] Cyanocobalamin (Vitamin B-12) 1,000 mcg SL DAILY #30 tab.subl 07/16/17 [Vitamin B-12 (1000 mcg sublingual)] Levofloxacin [Levaquin] 500 mg PO DAILY #3 tablet 07/16/17 Lidocaine Patch 5% [Lidoderm Patch] 1 patch TOP DAILY PRN patch 07/16/17 Losartan [Cozaar] 100 mg PO DAILY #0 07/16/17 07/12/17 Nitrofurantoin Monohyd/M-Cryst 100 mg PO BID 5 Days capsule 07/16/17 07/12/17 [Macrobid 100 mg Capsule] oxyCODONE/ACET 5/325 [Percocet 5 1 tab PO Q4HR PRN #30 tablet 07/16/17 mg/325 mg] - Allergies Allergies/Adverse Reactions: Allergies Allergy/AdvReac Type Severity Reaction Status Date / Time Penicillins Allergy Hives Verified 07/26/17 22:45 Review of Systems - Neurological Neurological: reports: Other (Dementia, increasing confusion per custodial staff) - Other Findings Other Findings: Due to her dementia and somnolence the patient is unable to participate in review of systems at this time. group home staff say that the patient has had increasing confusion over the last several days. Exam - Vital Signs Reviewed Vital Signs: Yes - Physical Exam General Appearance: positive: No acute distress, Lethargic Eyes Bilateral: positive: Normal inspection, PERRL, EOMI, No lid inflammation, Conjunctivae nml, No scleral icterus ENT: positive: ENT inspection nml, Pharynx nml, No signs of dehydration Neck: positive: Nml inspection, Thyroid nml, No JVD, Trachea midline. negative : Thyromegaly Respiratory: positive: Chest non-tender, No respiratory distress, Breath sounds nml. negative: Wheezes, Rales, Rhonchi Cardiovascular: positive: Regular rate & rhythm, No murmur, No gallop Peripheral Pulses: positive: 1+ Abdomen: positive: Non-tender, No organomegaly, Nml bowel sounds, No distention. negative: Guarding, Rebound Back: positive: Nml inspection. negative: CVA tenderness (R), CVA tenderness (L ) Skin: positive: Color nml, No rash, Warm, Dry. negative: Cyanosis Extremities: positive: Non-tender, No pedal edema. negative: Joint swelling Neurologic/Psychiatric: positive: Disoriented to person, Disoriented to place, Disoriented to time. negative: Facial droop Conclusion/Plan - Problem List (1) Hypercalcemia Conclusion/Plan: Moderate, responding to treatment. The patient is getting IV fluids and her calcium level dropped from 13.1 to 12.1 overnight. We will continue with the current treatment. It seems most likely that the cause of the hypercalcemia is a combination of overactive parathyroid gland which keep her baseline at high normal and daily supplements of calcium which are being given for some unknown reason at the custodial. (2) Parathyroid abnormality Conclusion/Plan: The patient's parathyroid hormone level is 143 which is significantly elevated. We will obtain an ultrasound of the patient's thyroid and refer to outpatient HEENT. (3) Hypomagnesemia Conclusion/Plan: Likely unrelated to hypercalcemia. We are replacing at this time. (4) Dementia Conclusion/Plan: The patient is significantly demented. She will be returned to the nursing home facility following electrolyte correction. (5) Hypertension Conclusion/Plan: The patient's blood pressure remains elevated despite being on Cozaar and Tenormin. We will add hydrochlorothiazide for blood pressure control, not hypercalcemia, and if necessary we will add a fourth agent. (6) Gout Conclusion/Plan: No active gouty arthritis at this time, continue allopurinol - Lab Results Lab results reviewed: Yes Fish Bones: 07/26/17 22:45 07/27/17 04:45 Core Measures - Anticipated LOS I expect patient to be DC'd or transferred within 96 hours.: Yes - DVT/VTE - Prophylaxis VTE/DVT Device ordered at admit?: Yes
[2017-07-27 06:16] LABS: CALCIUM 12.1 mg/dL (8.5-10.3)
[2017-07-27] MEDS ORDERED: hydroCHLOROthiazide 25 MG TABLET PO SCH (07:00)
[2017-07-27] MEDS ORDERED: cloNIDine 0.1 MG TABLET PO PRN (08:46)
[2017-07-27] MEDS: POLYETHYLENE GLYCOL 3350 17 GM PACKET PO SCH (08:47)
[2017-07-27] MEDS ORDERED: CYANOCOBALAMIN 500 MCG TABLET PO SCH (09:00)
[2017-07-27] MEDS ORDERED: NON FORMULARY MED (Levofloxacin [Levaquin] 500 MG) PO SCH (09:00)
[2017-07-27] MEDS ORDERED: NITROFURANTOIN MACRO 100 MG CAPSULE PO SCH (09:00)
[2017-07-27] MEDS ORDERED: levoFLOXacin 250 MG TABLET PO SCH (09:00)
[2017-07-27 09:02] LABS: BASOPHILS % (AUTO) 0.8 %; EOSINOPHILS % (AUTO) 10.9 %; HGB - HEMOGLOBIN 12.2 g/dL (12.0-16.0); LYMPHOCYTES % (AUTO) 19.8 %; MEAN CORPUSCULAR HEMOGLOBIN 30.1 pg (27.0-31.0); MEAN CORPUSCULAR HGB CONC 33.1 g/dL (32.0-36.0); MEAN PLATELET VOLUME 7.5 fL (7.9-10.8); NEUTROPHILS % (AUTO) 61.5 %; PLT - PLATELET COUNT 155 10^3/uL (130-450); RED BLOOD COUNT 4.06 10^6/uL (4.20-5.40); RED CELL DISTRIBUTION WIDTH 14.3 % (12.0-15.0); WHITE BLOOD COUNT 11.5 x10^3/uL (4.8-10.8)
[2017-07-27 09:03] LABS: ABNORMAL LYMPHS % (MANUAL) 0 %; BAND NEUTROPHILS % (MANUAL) 0 %
[2017-07-27 09:18] LABS: DIFFERENTIAL COMMENT MANUAL DIFFERENTIAL; EOSINOPHILS # (MANUAL) 1.4 10^3/uL (0-0.7); LYMPHOCYTES # (MANUAL) 2.8 10^3/uL (1.5-3.5); LYMPHOCYTES % (MANUAL) 24 %; MONOCYTES # (MANUAL) 0.6 10^3/uL (0.0-1.0); NEUTROPHILS # (MANUAL) 6.8 10^3/uL (1.5-6.6); NEUTROPHILS % (MANUAL) 59 %; PLATELET ESTIMATE, MANUAL NORMAL (130-450,000) (NORMAL); PLATELET MORPHOLOGY NORMAL APPEARANCE (NORMAL); RBC MORPHOLOGY (MULTIPLE) NORMAL APPEARANCE (NORMAL)
[2017-07-27] MEDS ORDERED: cloNIDine 0.1 MG PATCH TOP SCH (09:29)
--- NOTE | 2017-07-27 10:24 | CT Preliminary Report ---
Exam: CT HEAD W/O STROKE PROTOCOL IMPRESSION: Generalized age-related cortical atrophic changes without evidence of acute intracranial abnormality. Moderate diffuse cerebral volume loss. No intracranial hemorrhage. [facility] The above findings critical test were discussed with Dr. Hoda Swann by Dr. Christian Bond at 10:2 2 hrs on 07/27/17. SITE ID: [id number]
--- NOTE | 2017-07-27 10:24 | CT Report ---
EXAM: CT HEAD EXAM DATE: 07/27/2017 10:09 AM. CLINICAL HISTORY: Altered mental status. Lethargy, unable to speak COMPARISON: MR brain 07/13/2017,. TECHNIQUE: Multiaxial CT images were obtained from the foramen magnum to the vertex. Reformats: Coron al. IV contrast: None. In accordance with CT protocol optimization, one or more of the following dose reduction techniques w ere utilized for this exam: automated exposure control, adjustment of mA and/or KV based on patient s ize, or use of iterative reconstructive technique. FINDINGS: Parenchyma: No intraparenchymal hemorrhage. No evidence of mass, midline shift, or CT findings of acu te infarction. Nunez-white differentiation is distinct. Diffuse chronic microangiopathic white matter changes are evident. Extraaxial Spaces: Normal for age. No subdural or epidural collections identified. Ventricles: The ventricles and cortical sulci are enlarged, consistent with age-related tissue loss. Sinuses and orbits: Imaged paranasal sinuses, orbits, and mastoids show no significant abnormality. Bones: No evidence of fracture or calvarial defect. Other: None. IMPRESSION: Generalized age-related cortical atrophic changes without evidence of acute intracranial abnormality. Moderate diffuse cerebral volume loss. No intracranial hemorrhage. [facility] The above findings critical test were discussed with Dr. Hoda Swann by Dr. Christian Bond at 10:2 2 hrs on 07/27/17. Referring Provider Line: [phone] SITE ID: [id number]
[2017-07-27] MEDS: ALLOPURINOL 100 MG TABLET PO SCH (10:58)
[2017-07-27] MEDS: amLODIPine 5 MG TABLET PO SCH (10:58)
[2017-07-27] MEDS: LOSARTAN 50 MG TABLET PO SCH (10:59)
[2017-07-27] MEDS: SODIUM CHLORIDE FLUSH 0.9% 10 ML SYRINGE IVP PRN (10:59)
[2017-07-27] MEDS: D5.45NS W/20 MEQ KCL 1,000 ML IV SCH ×2 (11:00→13:34)
[2017-07-27] MEDS: hydrALAZINE INJ 20 MG/ML VIAL IVP SCH ×2 (13:23→20:48)
[2017-07-27 13:50] LABS: BILIRUBIN,URINE NEGATIVE (NEGATIVE); GLUCOSE, URINE (UA) NEGATIVE (NEGATIVE); KETONES,URINE (UA) NEGATIVE (NEGATIVE); LEUKOCYTE ESTERASE, URINE NEGATIVE (NEGATIVE); NITRITE,URINE NEGATIVE (NEGATIVE); OCCULT BLOOD,URINE NEGATIVE (NEGATIVE); PH,URINE 6.5 PH (5.0-7.5); PROTEIN,URINE NEGATIVE (NEGATIVE); UROBILINOGEN,URINE 0.2 (NORMAL) E.U./dL (NORMAL)
[2017-07-27 13:55] LABS: CLARITY,URINE CLEAR (CLEAR)
--- NOTE | 2017-07-27 15:02 | Ultrasound Report ---
EXAM: THYROID ULTRASOUND EXAM DATE: 07/27/2017 11:38 AM. CLINICAL HISTORY: Thyroid/parathyroid. Altered mental status. Lethargy. Unable to speak. COMPARISON: None. TECHNIQUE: Real time sonographic imaging of the thyroid was performed by the lab asst. Multiple re presentative static images were saved for review. FINDINGS: THYROID GLAND: Right Lobe: 3.9 x 1.3 x 1.4 cm, volume 3.7 cc. Normal background echotexture. Right Lobe Nodules: 1. Upper pole isoechoic solid nodule measuring 17 x 8 x 8 mm. Left Lobe: 3.6 x 1.6 x 1.7 cm, volume 3.0 cc. Normal background echotexture. Left Lobe Nodules: 1. Midpole predominantly solid complex nodule measuring 5 x 4 x 4 mm. Isthmus: 0.3 cm AP. Isthmic Nodules: None. LYMPH NODES: No adenopathy demonstrated in the central or lateral compartment. OTHER: None. IMPRESSION: 1. Bilateral thyroid nodules measuring up to 17 mm at the upper pole of the right thyroid lobe and 5 mm at midpole of the left thyroid lobe. The dominant upper pole right thyroid nodule meets criteria f or consideration of ultrasound-guided FNA biopsy, if not already performed. Otherwise at a minimum, r ecommend continued ultrasound surveillance in 6-24 months. Management recommendations are based on 2015 [place] [employer] Management Guidelines for A dult Patients with Thyroid Nodules and Differentiated Thyroid Cancer. [facility] Referring Provider Line: [phone] SITE ID: [id number]
[2017-07-27] MEDS: D5NS W/20 MEQ KCL 1,000 ML IV SCH (16:30)
--- NOTE | 2017-07-27 18:10 | ADVANCE CARE PLANNING NOTE ---
Advance Care Planning - Date/Time Date: 07/27/17 Time: 15:00 - Purpose of encounter Text: To update family on patient's status, determine how aggressively to treat her and family's goals for the patient - Parties in attendance Parties in attendance: I spoke to the patient at bedside and the family members present were her Eliud, her son (from a different ) Nickolas and Nickolas's . - Decisional capacity Decisional capacity of: The patient is unable to make decisions for herself due to dementia and current worsening of mentation from dehydration and hypercaalcemia. Nickolas described that the patient stated today that she had "just hiked to [place] and back" and the patient confirmed that she did do that. - Subjective/Patient's story Subjective/Patient's story: The patient was independent, lived with her second but was slowing down due to RA. Earlier this month she fell and hit her sternum on the washing machine and suffered a sternal fracture, needed hospitalization for severe pain and treatment of a UTI and was transferred to [facility] for PT rehab. She hardly participated in walking however, mostly only sat up in a chair. She needed to be fed and became less vocal. For the past several days she was too weak to even lift her head and did not recognize some family members. Labs were done and she was started on iv fluids, then sent here for management of hypercalcemia. Since hydration was started here, she has awoken more and does communicate a little, she has not been out of bed. - Objective/Medical story Objective/Medical Story: The patient had dementia noted on the last admission, that was never previously documented. Her gait was poor, needed a walker and fed herself with her fingers. Since being readmitted here last night, she appears dehydrated with dry oral mucosa and skin tenting, she lays with head of bed elevated and head is bent backward. She does recognize me and family and does whisper several word answers. A CT of the head showed no change from 3 weeks prior. Ca level is elevated at 12.5. A urinalysis shows no UTI. There is no POLST in her medical record. That was confirmed by her . There is a Living Will that states she does not want her life prolonged artificially if there is no hope for recovery and no atificial feeds or iv hydration should be done. - Goals of Care Goals of care determinations: Her is the POA, and he wants her to receive iv hydration and all medical care. She has spoken about being a DNR to her casually. The last admitting doctor indicated that she (Dr Brown) did speak with the patient and the patient did not want CPR then. The son Nickolas wants his mother to have medical care and understands that her worsened condition may be her "new norm". The entire family will be away until after . The did not sign a POLST form while he was here today. - Plan Plan: Continue DNR status, which the patient herself told her last provider and which the patient did verbalize in the past to her current . A POLST form should be completed by the POA. The son Nickolas's contact information was given to me by the . - Code Status Code Status: Do Not Attempt Resuscitation - Time Spent on Advance Care Planning Time spent on advance care plannin min
[2017-07-28] MEDS: D5NS W/20 MEQ KCL 1,000 ML IV SCH ×4 (00:35→16:24)
[2017-07-28 04:41] LABS: BASOPHILS % (AUTO) 0.9 %; EOSINOPHILS % (AUTO) 8.5 %; HGB - HEMOGLOBIN 12.7 g/dL (12.0-16.0); LYMPHOCYTES % (AUTO) 13.9 %; MEAN CORPUSCULAR HEMOGLOBIN 29.8 pg (27.0-31.0); MEAN CORPUSCULAR HGB CONC 32.8 g/dL (32.0-36.0); MEAN CORPUSCULAR VOLUME 90.9 fL (81.0-99.0); MEAN PLATELET VOLUME 7.8 fL (7.9-10.8); MONOCYTES % (AUTO) 6.4 %; NEUTROPHILS % (AUTO) 70.3 %; PLT - PLATELET COUNT 180 10^3/uL (130-450); RED BLOOD COUNT 4.26 10^6/uL (4.20-5.40); RED CELL DISTRIBUTION WIDTH 14.2 % (12.0-15.0); WHITE BLOOD COUNT 13.1 x10^3/uL (4.8-10.8)
[2017-07-28 04:54] LABS: ABNORMAL LYMPHS % (MANUAL) 0 %
[2017-07-28 04:55] LABS: ALBUMIN 3.6 g/dL (3.2-5.5); ALBUMIN/GLOBULIN RATIO 1.4 (1.0-2.2); BILIRUBIN,TOTAL 0.6 mg/dL (0.2-1.0); CREATININE 1.2 mg/dL (0.4-1.0); TOTAL PROTEIN 6.1 g/dL (6.7-8.2)
[2017-07-28 05:04] LABS: CALCIUM 12.6 mg/dL (8.5-10.3)
[2017-07-28 05:29] LABS: BAND NEUTROPHILS % (MANUAL) 4 %; DIFFERENTIAL COMMENT MANUAL DIFFERENTIAL; EOSINOPHILS # (MANUAL) 0.7 10^3/uL (0-0.7); LYMPHOCYTES # (MANUAL) 1.2 10^3/uL (1.5-3.5); LYMPHOCYTES % (MANUAL) 9 %; MONOCYTES # (MANUAL) 0.1 10^3/uL (0.0-1.0); NEUTROPHILS # (MANUAL) 11.1 10^3/uL (1.5-6.6); NEUTROPHILS % (MANUAL) 81 %; PLATELET ESTIMATE, MANUAL NORMAL (130-450,000) (NORMAL); RBC MORPHOLOGY (MULTIPLE) NORMAL APPEARANCE (NORMAL)
[2017-07-28] MEDS: SODIUM CHLORIDE FLUSH 0.9% 10 ML SYRINGE IVP SCH ×3 (05:43→16:14)
[2017-07-28] MEDS: hydrALAZINE INJ 20 MG/ML VIAL IVP SCH ×3 (08:21→21:59)
[2017-07-28] MEDS: POLYETHYLENE GLYCOL 3350 17 GM PACKET PO SCH (08:28)
[2017-07-28] MEDS: LOSARTAN 50 MG TABLET PO SCH (08:41)
[2017-07-28] MEDS: ALLOPURINOL 100 MG TABLET PO SCH (08:41)
[2017-07-28] MEDS: amLODIPine 5 MG TABLET PO SCH (08:41)
[2017-07-28] MEDS ORDERED: hydrALAZINE INJ 20 MG/ML VIAL IVP SCH ×2 (09:03→21:00)
--- NOTE | 2017-07-28 14:48 | PROVIDER PROGRESS NOTE ---
Assessment/Plan - Problem List (1) Hypercalcemia Assessment/Plan: Ultrasound of neck did shows "nodules of thyroid" which could be parathyroid gland enlargements. Family "wants" everything done", however her Living Will does not want such aggressive management. There is no family here today or tomorrow to discuss this with, until after the holiday. and son will be here on 07/30/17. Continue saline iv fluids. Continue to monitor ontinue NS fluids.daily Calcium and avoid HCTZ and Ca/ vitamin D supplements. (2) Dehydration Assessment/Plan: Patient still has BUN/creat values showing pre-renal azotemia today. Her dehydration my also be adding to confusion. Continue peripheral iv hydration. Monitor labs. Swallowing eval pending regarding proper diet to put her on. (3) Assessment/Plan: Will start scheduled Seroquel at 8 pm and prn Haldol in the evening. If patient is fatigued during the day, this may be adding to her confusion and delirium (hallucinations). (4) Dementia Assessment/Plan: Continue to re-orient patient. - Current Meds Current Meds: Current Medications Generic Name Dose Route Start Last Admin Trade Name Freq PRN Reason Stop Dose Admin Acetaminophen 650 mg 07/27/17 00:43 07/28/17 00:34 Tylenol PO 650 mg Q4HR PRN Administration Pain 1 to 4 Allopurinol 100 mg 07/27/17 09:00 07/28/17 08:41 Zyloprim PO Not Given DAILY KATHERINE Amlodipine Besylate 5 mg 07/27/17 09:00 07/28/17 08:41 Norvasc PO 5 mg DAILY KATHERINE Administration Clonidine HCl 1 patch 07/27/17 09:29 07/27/17 11:01 [id number] TOP 1 patch Q7D KATHERINE Administration Potassium Chloride/Dextrose/Sod Cl 1,000 mls @ 80 mls/hr 07/28/17 09:02 07/28 09:30 IV 80 mls/hr .[id number] KATHERINE Administration Losartan Potassium 100 mg 07/27/17 09:00 07/28/17 08:41 Cozaar PO 100 mg DAILY KATHERINE Administration Polyethylene Glycol 17 gm 07/27/17 09:00 07/28/17 08:28 Miralax PO Not Given DAILY KATHERINE Sodium Chloride 10 ml 07/27/17 00:43 07/27/17 10:59 Normal Saline Flush 0.9% IVP 30 ml PRN PRN Administration NEEDED PER PROVIDER ORDERS Sodium Chloride 10 ml 07/27/17 01:00 07/28/17 08:23 Normal Saline Flush 0.9% IVP 20 ml 0100,0900,1700 KATHERINE Administration - Lab Result Fish Bone Diagrams: 07/28/17 04:29 07/28/17 04:29 - Additional Planning My Orders: My Active Orders 07/27/17 Dinner DIET [Dysphagia Puree Diet] [DIET] 07/28/17 09:02 D5ns W/20 Meq KCl 1,000 ml IV 80 mls/hr 07/28/17 20:00 QUEtiapine [SEROquel] 25 mg PO QPM 07/28/17 21:00 hydrALAZINE INJ [Apresoline Inj] 10 mg IVP BID 07/28/17 22:00 Haloperidol Inj [Haldol Inj] 1 mg IVP QPM PRN Subjective - Subjective Patient Reports: Resting Comfortably Nursing Reports: Other (Pt was up all night, "owning", saw objects and was reaching for them. She was able to eat a few bites, needed to be fed and she could swallow pills.) Objective Vital Signs: Vital Signs - 24 hr 07/27/17 07/27/17 07/27/17 15:00 20:43 20:46 Temperature 37.1 C Heart Rate [ 53 L 66 62 Monitoring electrodes] Respiratory 18 Rate Blood Pressure Blood Pressure 148/89 H 168/128 H 194/88 H [Right Brachial artery] O2 Saturation 07/27/17 07/27/17 07/27/17 20:48 20:49 20:51 Temperature Heart Rate [ 59 L 56 L Monitoring electrodes] Respiratory Rate Blood Pressure 168/128 H Blood Pressure 190/56 H 197/91 H [Right Brachial artery] O2 Saturation 07/27/17 07/27/17 07/27/17 20:55 21:00 21:05 Temperature Heart Rate [ 61 67 68 Monitoring electrodes] Respiratory Rate Blood Pressure Blood Pressure 169/79 H 142/77 H 162/80 H [Right Brachial artery] O2 Saturation 07/27/17 07/27/17 07/27/17 21:21 21:30 21:45 Temperature Heart Rate [ 72 67 67 Monitoring electrodes] Respiratory Rate Blood Pressure Blood Pressure 136/89 H 109/67 139/67 H [Right Brachial artery] O2 Saturation 07/28/17 07/28/17 07/28/17 00:03 04:45 08:00 Temperature 36.8 C 36.6 C 36.2 C L Heart Rate [ 66 66 63 Monitoring electrodes] Respiratory 20 21 11 L Rate Blood Pressure Blood Pressure 167/89 H 183/95 H 208/108 H [Right Brachial artery] O2 Saturation 97 99 98 07/28/17 07/28/17 07/28/17 08:03 08:18 08:20 Temperature Heart Rate [ 64 65 63 Monitoring electrodes] Respiratory 15 17 15 Rate Blood Pressure Blood Pressure 197/96 H 203/85 H 196/97 H [Right Brachial artery] O2 Saturation 99 98 98 07/28/17 07/28/17 07/28/17 08:21 08:25 08:30 Temperature Heart Rate [ 64 66 Monitoring electrodes] Respiratory 15 22 Rate Blood Pressure 203/85 H Blood Pressure 200/97 H 178/79 H [Right Brachial artery] O2 Saturation 100 99 07/28/17 07/28/17 07/28/17 08:45 09:00 10:00 Temperature 36.5 C Heart Rate [ 69 69 66 Monitoring electrodes] Respiratory 20 20 Rate Blood Pressure Blood Pressure 168/95 H 160/77 H 132/100 H [Right Brachial artery] O2 Saturation 99 99 07/28/17 07/28/17 07/28/17 10:35 11:00 12:00 Temperature Heart Rate [ 61 65 65 Monitoring electrodes] Respiratory 18 19 19 Rate Blood Pressure Blood Pressure 167/86 H 157/93 H 167/79 H [Right Brachial artery] O2 Saturation 97 97 97 07/28/17 07/28/17 07/28/17 13:00 13:35 14:00 Temperature Heart Rate [ 66 65 66 Monitoring electrodes] Respiratory 20 17 21 Rate Blood Pressure Blood Pressure 170/78 H 177/90 H 166/87 H [Right Brachial artery] O2 Saturation 98 Oxygen O2 Source Room air I&O (Last 24 Hrs): Intake and Output Totals x24h 07/26/17 07/27/17 07/28/17 23:59 23:59 23:59 Intake Total 4512.000 1438 Output Total 400 50 Balance 4112.000 1388 General: Other (Sleeping with HIOB elevated, head bent upward.) HEENT: Mucous membr. moist/pink Neck: No JVD Neuro: Disoriented Respiratory: No respiratory distress Abdomen: Soft Extremities: No edema - Results Results: Laboratory Results WBC 13.1 x10^3/uL (4.8-10.8) H 07/28/17 04:29 RBC 4.26 10^6/uL (4.20-5.40) 07/28/17 04: Hgb 12.7 g/dL (12.0-16.0) 07/28/17 04:29 Hct 38.7 % (37.0-47.0) 07/28/17 04: MCV 90.9 fL (81.0-99.0) 07/28/17 04: MCH 29.8 pg (27.0-31.0) 07/28/17 04: MCHC 32.8 g/dL (32.0-36.0) 07/28/17 04: RDW 14.2 % (12.0-15.0) 07/28/17 04:29 Plt Count 180 10^3/uL (130-450) 07/28/17 04:29 MPV 7.8 fL (7.9-10.8) L 07/28/17 04:29 Neut # Not Reportable 07/28/17 04:29 Lymph # Not Reportable 07/28/17 04:29 [place] # Not Reportable 07/28/17 04:29 Eos # Not Reportable 07/28/17 04:29 Baso # Not Reportable 07/28/17 04:29 Absolute Nucleated RBC Not Reportable 07/28/17 04:29 Total Counted 100 07/28/17 04:29 Band Neuts % (Manual) 4 % (0-10) 07/28/17 04:29 Abnorm Lymph % (Manual) 0 % 07/28/17 04:29 Nucleated RBC % Not Reportable 07/28/17 04:29 Neutrophils # (Manual) 11.1 10^3/uL (1.5-6.6) H 07/28/17 04:29 Lymphocytes # (Manual) 1.2 10^3/uL (1.5-3.5) L 07/28/17 04:29 Monocytes # (Manual) 0.1 10^3/uL (0.0-1.0) 07/28/17 04:29 Eosinophils # (Manual) 0.7 10^3/uL (0-0.7) 07/28/17 04:29 Basophils # (Manual) 0.0 10^3/uL (0-0.1) 07/28/17 04:29 Differential Comment MANUAL DIFFERENTIAL 07/28/17 04:29 Manual Slide Review Indicated 07/27/17 08:57 WBC Morphology NORMAL APPEARANCE (NORMAL) 07/27/17 08:57 Platelet Estimate NORMAL (130-450,000) (NORMAL) 07/28/17 04:29 Platelet Morphology NORMAL APPEARANCE (NORMAL) 07/27/17 08:57 RBC Morph Micro Appear NORMAL APPEARANCE (NORMAL) 07/28/17 04:29 Sodium 137 mmol/L (135-145) 07/28/17 04:29 Potassium 3.9 mmol/L (3.5-5.0) 07/28/17 04:29 Chloride 108 mmol/L (101-111) 07/28/17 04:29 Carbon Dioxide 22 mmol/L (21-32) 07/28/17 04:29 Anion Gap 7.0 (6-13) 07/28/17 04:29 BUN 25 mg/dL (6-20) H 07/28/17 04:29 Creatinine 1.2 mg/dL (0.4-1.0) H 07/28/17 04:29 Estimated GFR (MDRD) 43 (>89) L 07/28/17 04:29 Glucose 130 mg/dL (70-100) H 07/28/17 04:29 Lactic Acid 1.6 mmol/L (0.5-2.2) 07/27/17 12:20 Calcium 12.6 mg/dL (8.5-10.3) H* 07/28/17 04:29 Ionized Calcium NO 07/27/17 04:45 Phosphorus 2.9 mg/dL (2.5-4.6) 07/26/17 22:45 Magnesium 2.4 mg/dL (1.7-2.8) 07/27/17 04:45 Total Bilirubin 0.6 mg/dL (0.2-1.0) 07/28/17 04:29 AST 17 IU/L (10-42) 07/28/17 04:29 ALT 12 IU/L (10-60) 07/28/17 04:29 Alkaline Phosphatase 99 IU/L (42-121) 07/28/17 04:29 Total Creatine Kinase 26 IU/L (22-269) 07/26/17 22:45 Troponin I 0.06 ng/mL (<0.49) 07/27/17 10:32 Total Protein 6.1 g/dL (6.7-8.2) L 07/28/17 04:29 Albumin 3.6 g/dL (3.2-5.5) 07/28/17 04:29 Globulin 2.5 g/dL (2.1-4.2) 07/28/17 04:29 Albumin/Globulin Ratio 1.4 (1.0-2.2) 07/28/17 04:29 Lipase 39 U/L (22-51) 07/26/17 22:45 TSH 1.80 uIU/mL (0.34-5.60) 07/26/17 22:45 PTH Intact 143 pg/mL (12-88) H 07/26/17 22:45 Urine Color YELLOW 07/27/17 12:15 Urine Clarity CLEAR (CLEAR) 07/27/17 12:15 Urine pH 6.5 PH (5.0-7.5) 07/27/17 12:15 Ur Specific [place] 1.015 (1.002-1.030) 07/27/17 12:15 Urine Protein NEGATIVE mg/dL (NEGATIVE) 07/27/17 12:15 Urine Glucose (UA) NEGATIVE mg/dL (NEGATIVE) 07/27/17 12:15 Urine Ketones NEGATIVE mg/dL (NEGATIVE) 07/27/17 12:15 Urine Occult Blood NEGATIVE (NEGATIVE) 07/27/17 12:15 Urine Nitrite NEGATIVE (NEGATIVE) 07/27/17 12:15 Urine Bilirubin NEGATIVE (NEGATIVE) 07/27/17 12:15 Urine Urobilinogen 0.2 (NORMAL) E.U./dL (NORMAL) 07/27/17 12:15 Ur Leukocyte Esterase NEGATIVE (NEGATIVE) 07/27/17 12:15 Ur Microscopic Review NOT INDICATED 07/27/17 12:15 Urine Culture Comments NOT INDICATED 07/27/17 12:15 - Procedures Procedures: Procedures INSERTION OF INFUSION DEV INTO SUP VENA CAVA, PERC APPROACH (04/20/15)
[2017-07-28] MEDS ORDERED: cloNIDine 0.2 MG PATCH TOP SCH (15:24)
[2017-07-28] MEDS: ACETAMINOPHEN 1,000 MG/100 ML 100 ML IV PRN (16:21)
[2017-07-28] MEDS: QUEtiapine 25 MG TABLET PO SCH ×2 (19:51→20:10)
[2017-07-28] MEDS ORDERED: HALOPERIDOL 5 MG/ML VIAL IVP PRN (22:00)
[2017-07-29] MEDS: SODIUM CHLORIDE FLUSH 0.9% 10 ML SYRINGE IVP SCH ×3 (00:23→15:59)
[2017-07-29] MEDS: D5NS W/20 MEQ KCL 1,000 ML IV SCH ×3 (04:52→15:59)
[2017-07-29] MEDS: ACETAMINOPHEN 1,000 MG/100 ML 100 ML IV PRN ×3 (04:52→20:07)
[2017-07-29] MEDS: hydrALAZINE INJ 20 MG/ML VIAL IVP SCH ×3 (05:42→20:48)
[2017-07-29 06:51] LABS: BASOPHILS # (AUTO) 0.1 10^3/uL (0.0-0.1); BASOPHILS % (AUTO) 0.8 %; EOSINOPHILS # (AUTO) 0.9 10^3/uL (0.0-0.7); EOSINOPHILS % (AUTO) 8.3 %; HGB - HEMOGLOBIN 11.8 g/dL (12.0-16.0); LYMPHOCYTES # (AUTO) 1.7 10^3/uL (1.5-3.5); LYMPHOCYTES % (AUTO) 14.7 %; MEAN CORPUSCULAR HEMOGLOBIN 29.6 pg (27.0-31.0); MEAN CORPUSCULAR HGB CONC 32.3 g/dL (32.0-36.0); MEAN CORPUSCULAR VOLUME 91.6 fL (81.0-99.0); MEAN PLATELET VOLUME 8.4 fL (7.9-10.8); MONOCYTES # (AUTO) 0.8 10^3/uL (0.0-1.0); MONOCYTES % (AUTO) 7.3 %; NEUTROPHILS # (AUTO) 7.8 10^3/uL (1.5-6.6); NEUTROPHILS % (AUTO) 68.9 %; PLT - PLATELET COUNT 180 10^3/uL (130-450); RED BLOOD COUNT 3.98 10^6/uL (4.20-5.40); RED CELL DISTRIBUTION WIDTH 14.7 % (12.0-15.0); WHITE BLOOD COUNT 11.3 x10^3/uL (4.8-10.8)
[2017-07-29 07:10] LABS: CREATININE 1.3 mg/dL (0.4-1.0)
[2017-07-29 07:11] LABS: CALCIUM 12.6 mg/dL (8.5-10.3)
--- NOTE | 2017-07-29 08:59 | PROVIDER PROGRESS NOTE ---
Assessment/Plan - Problem List (1) Hypercalcemia Assessment/Plan: No significant drop in Ca. Pt less responsive which could be from hypercalcemia or dehydration. Will give a saline bolus and increase saline to 100 cc/hr and add Calcitonin 250 mg sq bid. Continue monitoring Ca daily. I updated the son Nickolas by phone, regarding the patients much worsened level of consciousness today. He told our Socia[employer] worker Yuly by phone today that he, not the , is the POA. We have no records to substantiate that. I have requested any POLST paperwork from [facility], which Nickolas told me, is there. (2) CKD (chronic kidney disease) stage 3, GFR 30-59 ml/min Assessment/Plan: Continue iv hydration and monitor electrolytes, BUN/creat daily. (3) Dehydration Assessment/Plan: Continue peripheral iv since po intake is not adequate. (4) Assessment/Plan: Pt now on Seroquel qpm prn and prn Haldol. (5) Dementia Assessment/Plan: Severity unknown and currently overshadowed by confusion possibly from hypercalcemia. Reorient patient. - Current Meds Current Meds: Current Medications Generic Name Dose Route Start Last Admin Trade Name Freq PRN Reason Stop Dose Admin Acetaminophen 650 mg 07/27/17 00:43 07/28/17 00:34 Tylenol PO 650 mg Q4HR PRN Administration Pain 1 to 4 Allopurinol 100 mg 07/27/17 09:00 07/28/17 08:41 Zyloprim PO Not Given DAILY KATHERINE Amlodipine Besylate 5 mg 07/27/17 09:00 07/28/17 08:41 Norvasc PO 5 mg DAILY KATHERINE Administration Clonidine HCl 1 patch 07/28/17 15:24 07/28/17 16:10 [id number]-Vvl-7 TOP 1 patch Q7D KATHERINE Administration Acetaminophen 100 mls @ 400 mls/hr 07/28/17 15:24 07/29/17 05:40 Ofirmev IV Infused Q6HR PRN Infusion PAIN Losartan Potassium 100 mg 07/27/17 09:00 07/28/17 08:41 Cozaar PO 100 mg DAILY KATHERINE Administration Polyethylene Glycol 17 gm 07/27/17 09:00 07/28/17 08:28 Miralax PO Not Given DAILY KATHERINE Quetiapine Fumarate 25 mg 07/28/17 20:00 07/28/17 20:10 Seroquel PO Not Given QPM [facility] Sodium Chloride 10 ml 07/27/17 00:43 07/27/17 10:59 Normal Saline Flush 0.9% IVP 30 ml PRN PRN Administration NEEDED PER PROVIDER ORDERS Sodium Chloride 10 ml 07/27/17 01:00 07/29/17 00:23 Normal Saline Flush 0.9% IVP Not Given 0100,0900,1700 KATHERINE - Lab Result Fish Bone Diagrams: 07/29/17 06:20 07/29/17 06:20 - Additional Planning My Orders: My Active Orders 07/28/17 15:24 Acetaminophen 1,000 mg/100 ml [Ofirmev] 100 ml IV Q6HR cloNIDine 0.2 MG PATCH [[id number]-Edf-2] 1 patch TOP Q7D 07/28/17 20:00 QUEtiapine [SEROquel] 25 mg PO QPM 07/28/17 22:00 Haloperidol Inj [Haldol Inj] 1 mg IVP QPM PRN 07/29/17 08:57 D5ns W/20 Meq KCl 1,000 ml IV 100 mls/hr 07/29/17 09:00 Alendronate [Fosamax] 70 mg PO DAILY 07/29/17 16:00 hydrALAZINE INJ [Apresoline Inj] 10 mg IVP BID 07/30/17 05:00 BMP - BASIC METABOLIC PANEL [CHEM] DAILYLAB CALCIUM [CHEM] DAILYLAB 07/31/17 05:00 BMP - BASIC METABOLIC PANEL [CHEM] DAILYLAB CALCIUM [CHEM] DAILYLAB 08/01/17 05:00 CALCIUM [CHEM] DAILYLAB Subjective - Subjective Nursing Reports: Confused Objective Vital Signs: Vital Signs - 24 hr 07/28/17 07/28/17 07/28/17 09:00 10:00 10:35 Temperature 36.5 C Heart Rate [ 69 66 61 Monitoring electrodes] Respiratory 20 18 Rate Blood Pressure Blood Pressure 160/77 H 132/100 H 167/86 H [Right Brachial artery] O2 Saturation 99 97 07/28/17 07/28/17 07/28/17 11:00 12:00 13:00 Temperature Heart Rate [ 65 65 66 Monitoring electrodes] Respiratory 19 19 20 Rate Blood Pressure Blood Pressure 157/93 H 167/79 H 170/78 H [Right Brachial artery] O2 Saturation 97 97 98 07/28/17 07/28/17 07/28/17 13:35 14:00 16:00 Temperature 36.6 C Heart Rate [ 65 66 66 Monitoring electrodes] Respiratory 17 21 22 Rate Blood Pressure Blood Pressure 177/90 H 166/87 H 161/90 H [Right Brachial artery] O2 Saturation 98 07/28/17 07/28/17 07/28/17 16:12 16:19 16:26 Temperature Heart Rate [ 74 74 71 Monitoring electrodes] Respiratory 22 16 Rate Blood Pressure 176/93 H Blood Pressure 176/93 H 164/79 H 148/85 H [Right Brachial artery] O2 Saturation 97 91 L 07/28/17 07/28/17 07/28/17 16:33 16:46 17:04 Temperature Heart Rate [ 74 71 73 Monitoring electrodes] Respiratory 24 Rate Blood Pressure Blood Pressure 146/77 H 140/72 H 140/72 H [Right Brachial artery] O2 Saturation 98 07/28/17 07/28/17 07/28/17 17:20 18:01 20:00 Temperature 36.2 C L Heart Rate [ 66 63 67 Monitoring electrodes] Respiratory 97 H 18 18 Rate Blood Pressure Blood Pressure 131/74 H 114/70 161/83 H [Right Brachial artery] O2 Saturation 17 L 97 97 07/28/17 07/28/17 07/28/17 21:00 21:59 22:05 Temperature Heart Rate [ 76 75 Monitoring electrodes] Respiratory 16 Rate Blood Pressure 159/80 H Blood Pressure 154/81 H 156/77 H [Right Brachial artery] O2 Saturation 07/28/17 07/28/17 07/28/17 22:10 22:15 23:48 Temperature 36.2 C L Heart Rate [ 76 82 67 Monitoring electrodes] Respiratory 16 Rate Blood Pressure Blood Pressure 150/91 H 147/80 H 138/96 H [Right Brachial artery] O2 Saturation 97 07/29/17 07/29/17 07/29/17 03:59 05:42 05:45 Temperature 36.1 C L Heart Rate [ 60 65 Monitoring electrodes] Respiratory 13 Rate Blood Pressure 122/79 Blood Pressure 135/94 H 172/83 H [Right Brachial artery] O2 Saturation 98 07/29/17 07/29/17 07/29/17 05:51 05:58 08:00 Temperature 36.4 C L Heart Rate [ 62 64 59 L Monitoring electrodes] Respiratory 19 Rate Blood Pressure Blood Pressure 152/88 H 158/104 H 100/68 [Right Brachial artery] O2 Saturation 98 Oxygen O2 Source Room air I&O (Last 24 Hrs): Intake and Output Totals x24h 07/27/17 07/28/17 07/29/17 23:59 23:59 23:59 Intake Total 4512.000 2090 1097.333 Output Total 400 350 100 Balance 4112.000 1740 997.333 - Results Results: Laboratory Results WBC 11.3 x10^3/uL (4.8-10.8) H 07/29/17 06:20 RBC 3.98 10^6/uL (4.20-5.40) L 07/29/17 06:20 Hgb 11.8 g/dL (12.0-16.0) L 07/29/17 06:20 Hct 36.4 % (37.0-47.0) L 07/29/17 06:20 MCV 91.6 fL (81.0-99.0) 07/29/17 06:20 MCH 29.6 pg (27.0-31.0) 07/29/17 06:20 MCHC 32.3 g/dL (32.0-36.0) 07/29/17 06:20 RDW 14.7 % (12.0-15.0) 07/29/17 06:20 Plt Count 180 10^3/uL (130-450) 07/29/17 06:20 MPV 8.4 fL (7.9-10.8) 07/29/17 06:20 Neut # 7.8 10^3/uL (1.5-6.6) H 07/29/17 06:20 Lymph # 1.7 10^3/uL (1.5-3.5) 07/29/17 06:20 [place] # 0.8 10^3/uL (0.0-1.0) 07/29/17 06:20 Eos # 0.9 10^3/uL (0.0-0.7) H 07/29/17 06:20 Baso # 0.1 10^3/uL (0.0-0.1) 07/29/17 06:20 Absolute Nucleated RBC 0.00 x10^3/uL 07/29/17 06:20 Total Counted 100 07/28/17 04:29 Band Neuts % (Manual) 4 % (0-10) 07/28/17 04:29 Abnorm Lymph % (Manual) 0 % 07/28/17 04:29 Nucleated RBC % 0.0 /100WBC 07/29/17 06:20 Neutrophils # (Manual) 11.1 10^3/uL (1.5-6.6) H 07/28/17 04:29 Lymphocytes # (Manual) 1.2 10^3/uL (1.5-3.5) L 07/28/17 04:29 Monocytes # (Manual) 0.1 10^3/uL (0.0-1.0) 07/28/17 04: Eosinophils # (Manual) 0.7 10^3/uL (0-0.7) 07/28/17 04:29 Basophils # (Manual) 0.0 10^3/uL (0-0.1) 07/28/17 04:29 Differential Comment MANUAL DIFFERENTIAL 07/28/17 04:29 Manual Slide Review Indicated 07/27/17 08:57 WBC Morphology NORMAL APPEARANCE (NORMAL) 07/27/17 08:57 Platelet Estimate NORMAL (130-450,000) (NORMAL) 07/28/17 04:29 Platelet Morphology NORMAL APPEARANCE (NORMAL) 07/27/17 08:57 RBC Morph Micro Appear NORMAL APPEARANCE (NORMAL) 07/28/17 04:29 Sodium 140 mmol/L (135-145) 07/29/17 06:20 Potassium 4.2 mmol/L (3.5-5.0) 07/29/17 06:20 Chloride 112 mmol/L (101-111) H 07/29/17 06:20 Carbon Dioxide 22 mmol/L (21-32) 07/29/17 06:20 Anion Gap 6.0 (6-13) 07/29/17 06:20 BUN 19 mg/dL (6-20) 07/29/17 06:20 Creatinine 1.3 mg/dL (0.4-1.0) H 07/29/17 06:20 Estimated GFR (MDRD) 39 (>89) L 07/29/17 06:20 Glucose 105 mg/dL (70-100) H 07/29/17 06:20 Lactic Acid 1.6 mmol/L (0.5-2.2) 07/27/17 12:20 Calcium 12.6 mg/dL (8.5-10.3) H* 07/29/17 06:20 Ionized Calcium NO 07/27/17 04:45 Phosphorus 2.9 mg/dL (2.5-4.6) 07/26/17 22:45 Magnesium 2.4 mg/dL (1.7-2.8) 07/27/17 04:45 Total Bilirubin 0.6 mg/dL (0.2-1.0) 07/28/17 04:29 AST 17 IU/L (10-42) 07/28/17 04:29 ALT 12 IU/L (10-60) 07/28/17 04:29 Alkaline Phosphatase 99 IU/L (42-121) 07/28/17 04:29 Total Creatine Kinase 26 IU/L (22-269) 07/26/17 22:45 Troponin I 0.06 ng/mL (<0.49) 07/27/17 10:32 Total Protein 6.1 g/dL (6.7-8.2) L 07/28/17 04:29 Albumin 3.6 g/dL (3.2-5.5) 07/28/17 04:29 Globulin 2.5 g/dL (2.1-4.2) 07/28/17 04:29 Albumin/Globulin Ratio 1.4 (1.0-2.2) 07/28/17 04:29 Lipase 39 U/L (22-51) 07/26/17 22:45 TSH 1.80 uIU/mL (0.34-5.60) 07/26/17 22:45 PTH Intact 143 pg/mL (12-88) H 07/26/17 22:45 Urine Color YELLOW 07/27/17 12:15 Urine Clarity CLEAR (CLEAR) 07/27/17 12:15 Urine pH 6.5 PH (5.0-7.5) 07/27/17 12:15 Ur Specific [place] 1.015 (1.002-1.030) 07/27/17 12:15 Urine Protein NEGATIVE mg/dL (NEGATIVE) 07/27/17 12:15 Urine Glucose (UA) NEGATIVE mg/dL (NEGATIVE) 07/27/17 12:15 Urine Ketones NEGATIVE mg/dL (NEGATIVE) 07/27/17 12:15 Urine Occult Blood NEGATIVE (NEGATIVE) 07/27/17 12:15 Urine Nitrite NEGATIVE (NEGATIVE) 07/27/17 12:15 Urine Bilirubin NEGATIVE (NEGATIVE) 07/27/17 12:15 Urine Urobilinogen 0.2 (NORMAL) E.U./dL (NORMAL) 07/27/17 12:15 Ur Leukocyte Esterase NEGATIVE (NEGATIVE) 07/27/17 12:15 Ur Microscopic Review NOT INDICATED 07/27/17 12:15 Urine Culture Comments NOT INDICATED 07/27/17 12:15 - Procedures Procedures: Procedures INSERTION OF INFUSION DEV INTO SUP VENA CAVA, PERC APPROACH (04/20/15) ABX Reporting Has patient been on IV antibiotics over the past 48 hours?: No
[2017-07-29] MEDS ORDERED: ALENDRONATE 70 MG TABLET PO SCH (09:00)
[2017-07-29] MEDS: POLYETHYLENE GLYCOL 3350 17 GM PACKET PO SCH (10:01)
[2017-07-29] MEDS: amLODIPine 5 MG TABLET PO SCH (10:01)
[2017-07-29] MEDS: LOSARTAN 50 MG TABLET PO SCH (10:01)
[2017-07-29] MEDS: ALLOPURINOL 100 MG TABLET PO SCH (10:02)
[2017-07-29] MEDS ORDERED: SODIUM CHLORIDE 0.9% 1,000 ML IV ONE (10:34)
[2017-07-29] MEDS: CALCITONIN 400 UNITS/2 ML VIAL SUBQ SCH ×2 (11:08→20:49)
[2017-07-29] MEDS ORDERED: QUEtiapine 25 MG TABLET PO PRN (18:19)
[2017-07-30] MEDS: SODIUM CHLORIDE FLUSH 0.9% 10 ML SYRINGE IVP SCH ×4 (00:12→20:56)
[2017-07-30] MEDS: ACETAMINOPHEN 1,000 MG/100 ML 100 ML IV PRN ×3 (03:00→16:34)
[2017-07-30] MEDS: D5NS W/20 MEQ KCL 1,000 ML IV SCH ×2 (03:01→12:53)
[2017-07-30 05:37] LABS: BASOPHILS # (AUTO) 0.1 10^3/uL (0.0-0.1); BASOPHILS % (AUTO) 0.7 %; EOSINOPHILS % (AUTO) 8.4 %; HGB - HEMOGLOBIN 11.7 g/dL (12.0-16.0); LYMPHOCYTES # (AUTO) 1.9 10^3/uL (1.5-3.5); LYMPHOCYTES % (AUTO) 15.8 %; MEAN CORPUSCULAR HEMOGLOBIN 29.5 pg (27.0-31.0); MEAN CORPUSCULAR HGB CONC 31.9 g/dL (32.0-36.0); MEAN CORPUSCULAR VOLUME 92.3 fL (81.0-99.0); MEAN PLATELET VOLUME 7.5 fL (7.9-10.8); MONOCYTES # (AUTO) 0.9 10^3/uL (0.0-1.0); MONOCYTES % (AUTO) 7.5 %; NEUTROPHILS # (AUTO) 8.3 10^3/uL (1.5-6.6); NEUTROPHILS % (AUTO) 67.6 %; PLT - PLATELET COUNT 203 10^3/uL (130-450); RED BLOOD COUNT 3.98 10^6/uL (4.20-5.40); RED CELL DISTRIBUTION WIDTH 14.7 % (12.0-15.0); WHITE BLOOD COUNT 12.3 x10^3/uL (4.8-10.8)
[2017-07-30 05:48] LABS: CALCIUM 10.8 mg/dL (8.5-10.3); CREATININE 1.4 mg/dL (0.4-1.0)
[2017-07-30] MEDS: POLYETHYLENE GLYCOL 3350 17 GM PACKET PO SCH (07:38)
[2017-07-30] MEDS: hydrALAZINE INJ 20 MG/ML VIAL IVP SCH ×2 (08:09→20:56)
[2017-07-30] MEDS: ALLOPURINOL 100 MG TABLET PO SCH (08:29)
[2017-07-30] MEDS: amLODIPine 5 MG TABLET PO SCH (08:29)
[2017-07-30] MEDS: LOSARTAN 50 MG TABLET PO SCH (08:30)
[2017-07-30] MEDS: CALCITONIN 400 UNITS/2 ML VIAL SUBQ SCH (10:19)
--- NOTE | 2017-07-30 13:35 | PROVIDER PROGRESS NOTE ---
Subjective - Prog Note Date Prog Note Date: 07/30/17 Prog Note Time: 13:35 - Subjective Subjective: I am the hospitalist coming on service again. The patient was seen in emergency room for chest pain and had a normal EKG, normal evaluation except for UTI. She responded to treatment in the ED and was sent home. 4 days later she returned with continued chest pain was found to have a sternal fracture. She was in the hospital for a few days. No one is clear how fall happened. It may be from a fall against a washer. Had some complications of pneumonia. When she responded to therapy, was felt stable enough for discharge, it was realized that she needed to go to rehab and was sent to [facility]. While it [facility], she continued to get calcium daily. Apparently calcium was stopped 3 or 4 years ago because of primary hyperparathyroidism. PTH level was documented. The patient was supposed to stop calcium supplements, and she refused surgery for the hyperparathyroid nodule they felt she had. She had increasing metabolic encephalopathy at [facility]. She came back to us and her calcium was 13.6. She is received IV fluids, and calcitonin , and Lasix is now 10. From a overall status, she has not really responded. Family describes her as able to have a conversation 3 weeks ago. She was able to feed herself and dress herself if appropriately prompted. Her current status is unable to speak lucidly, very confused. Sometimes she recognizes has been, sometimes she does not. Her son is the power of civil attorney. His name is Nickolas Feldman at [phone]. Mr. Feldman says that Mrs. Hart would most likely not of wanted further treatment. She had been pretty clear about IVs, blood draws, hospitalizations in the past. Her and Mr. Feldman were hoping that she would respond to our treatment. She is so deteriorated that they wonder if we should go further. Current Medications - Current Medications Current Medications: Active Medications Acetaminophen (Tylenol) 650 mg PO Q4HR PRN PRN Reason: Pain 1 to 4 Last Admin: 07/28/17 00:34 Dose: 650 mg Allopurinol (Zyloprim) 100 mg PO DAILY KATHERINE Last Admin: 07/30/17 08:29 Dose: Not Given Amlodipine Besylate (Norvasc) 5 mg PO DAILY [facility] Last Admin: 07/30/17 08:29 Dose: Not Given Calcitonin [place] (Miacalcin) 200 units SUBQ BID [facility] Last Admin: 07/30/17 10:19 Dose: Not Given Haloperidol (Haldol Inj) 1 mg IVP QPM PRN PRN Reason: Agitation Hydralazine HCl (Apresoline Inj) 10 mg IVP BID [facility] Last Admin: 07/30/17 08:09 Dose: 10 mg Acetaminophen (Ofirmev) 100 mls @ 400 mls/hr IV Q6HR PRN PRN Reason: PAIN Last Infusion: 07/30/17 09:35 Dose: Infused Potassium Chloride/Dextrose/Sod Cl () 1,000 mls @ 100 mls/hr IV .Q10H [facility] Last Admin: 07/30/17 12:53 Dose: 100 mls/hr Losartan Potassium (Cozaar) 100 mg PO DAILY [facility] Last Admin: 07/30/17 08:30 Dose: Not Given Polyethylene Glycol (Miralax) 17 gm PO DAILY [facility] Last Admin: 07/30/17 07:38 Dose: Not Given Quetiapine Fumarate (Seroquel) 25 mg PO QPM PRN PRN Reason: Anxiety Sodium Chloride (Normal Saline Flush 0.9%) 10 ml IVP PRN PRN PRN Reason: NEEDED PER PROVIDER ORDERS Last Admin: 07/27/17 10:59 Dose: 30 ml Sodium Chloride (Normal Saline Flush 0.9%) 10 ml IVP 0100,0900,1700 [facility] Last Admin: 07/30/17 08:10 Dose: 10 ml Nystatin 5 ml PO QID 07/27/17 Objective - Vital Signs/Intake & Output Reviewed Vital Signs: Yes Vital Signs: Vital Signs x48h Temp Pulse Resp BP BP Pulse Ox 07/30/17 09:08 83 112/94 H 07/30/17 08:55 78 144/64 H 07/30/17 08:40 85 140/92 H 07/30/17 08:25 80 114/69 07/30/17 08:20 73 133/58 H 07/30/17 08:15 76 140/91 H 07/30/17 08:10 79 148/72 H 07/30/17 07:20 36.4 C L 89 20 164/85 H 97 Intake & Output: Intake & Output 07/27/17 07/28/17 07/29/17 07/30/17 23:59 23:59 23:59 23:59 Intake Total 4512.000 2090 3386.666 2145.000 Output Total 569 242 8299 200 Balance 4112.000 1740 7291.342 0625.000 - Objective General Appearance: positive: Mild distress (face grimaces, she cries, voice is garbled and occasionally will be verbal with her ) Eyes Bilateral: positive: PERRL ENT: positive: Pharynx nml Neck: positive: No JVD. negative: Lymphadenopathy (R), Lymphadenopathy (L), Stiff neck, Carotid bruit Respiratory: positive: Chest non-tender. negative: Wheezes, Rales, Rhonchi Cardiovascular: positive: Regular rate & rhythm. negative: Gallop/S4, Friction rub Abdomen: positive: Non-tender, No organomegaly, Nml bowel sounds. negative: Guarding, Rebound Skin: positive: Warm, Dry Extremities: positive: Pedal edema Neurologic/Psychiatric: positive: CN's nml (2-12) (in that no facial droop, speech garbled, can hear, can see), Motor nml (no focal weakness), Disoriented to person, Disoriented to place, Disoriented to time, Weakness (generalized) - Lab Results Fish Bones: 07/30/17 05:27 07/30/17 05:27 Other Labs: Lab Results x24hrs 07/30/17 07/30/17 Range/Units 05:27 05:27 WBC 12.3 H (4.8-10.8) x10^3/uL RBC 3.98 L (4.20-5.40) 10^6/uL Hgb 11.7 L (12.0-16.0) g/dL Hct 36.7 L (37.0-47.0) % MCV 92.3 (81.0-99.0) fL MCH 29.5 (27.0-31.0) pg MCHC 31.9 L (32.0-36.0) g/dL RDW 14.7 (12.0-15.0) % Plt Count 203 (130-450) 10^3/uL MPV 7.5 L (7.9-10.8) fL Neut # 8.3 H (1.5-6.6) 10^3/uL Lymph # 1.9 (1.5-3.5) 10^3/uL Woodruff # 0.9 (0.0-1.0) 10^3/uL Eos # 1.0 H (0.0-0.7) 10^3/uL Baso # 0.1 (0.0-0.1) 10^3/uL Absolute Nucleated RBC 0.00 x10^3/uL Nucleated RBC % 0.0 /100WBC Sodium 139 (135-145) mmol/L Potassium 4.6 (3.5-5.0) mmol/L Chloride 112 H (101-111) mmol/L Carbon Dioxide 21 (21-32) mmol/L Anion Gap 6.0 (6-13) BUN 18 (6-20) mg/dL Creatinine 1.4 H (0.4-1.0) mg/dL Estimated GFR (MDRD) 36 L (>89) Glucose 111 H (70-100) mg/dL Calcium 10.8 H (8.5-10.3) mg/dL ABX Reporting Has patient been on IV antibiotics over the past 48 hours?: No Assessment/Plan - Problem List (1) Encephalopathy, metabolic Impression: from 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 Although she has CKD she is not felt to have low Vit D or secondary hyperparathyroidism. She has received therapy. Calcium now 10.8 wit h nml 10.3. Still has confusion, weakness. See #2. (2) Failure to thrive Impression: she already had dementia with some deterioration in ability to function but was felt to be "good" by both son and . Unfortunately the falls she's had and subsequent sternal fracture with use of pain meds, hospitalization, etc. have causes her to precipitously deteriorate even further. Now add the hypercalcemia. In asking the question would I be surprised if she were alive in a year, yes is the answer. Family states she wouldn't have wanted some of our treatment. And to continue to do more is somewhat against her wishes. As such, they have asked for a Hospice Consult. Dr. Rogers has seen her and agrees she is appropriate for transition to Hospice. However, their intake cannot be until Caren 1. I will transition to comfort measures only and dc August 02. Qualifiers: Failure to thrive age range: in adult Qualified Code(s): R62.7 - Adult failure to thrive (3) Impression: on haldol prn, seroquel. continue.
[2017-07-30] MEDS ORDERED: CARBOXYMETHYLCELLULOSE OPHTH DROPS EACHEYE PRN (16:23)
[2017-07-30] MEDS ORDERED: ATROPINE 1% OPHTH DROPS 2 ML SL PRN (16:23)
[2017-07-30] MEDS ORDERED: HALOPERIDOL 5 MG/ML VIAL IVP PRN (16:23)
[2017-07-30] MEDS ORDERED: MORPHINE SOL 10 MG/0.5 ML SYRINGE SL PRN (16:23)
[2017-07-30] MEDS ORDERED: LORazepam 2 MG/ML VIAL IVP PRN (16:23)
[2017-07-30] MEDS: SODIUM CHLORIDE FLUSH 0.9% 10 ML SYRINGE IVP PRN (20:56)
[2017-07-31] MEDS: LOSARTAN 50 MG TABLET PO SCH (07:18)
[2017-07-31] MEDS: POLYETHYLENE GLYCOL 3350 17 GM PACKET PO SCH (07:18)
[2017-07-31] MEDS: amLODIPine 5 MG TABLET PO SCH (07:18)
[2017-07-31] MEDS: SODIUM CHLORIDE FLUSH 0.9% 10 ML SYRINGE IVP SCH ×3 (09:41→23:22)
[2017-07-31] MEDS: hydrALAZINE INJ 20 MG/ML VIAL IVP SCH ×2 (09:50→20:03)
--- NOTE | 2017-07-31 15:54 | PROVIDER PROGRESS NOTE ---
Subjective - Prog Note Date Prog Note Date: 07/31/17 Prog Note Time: 15:52 - Subjective Pt reports feeling: Improved Subjective: she woke up. Feels better. verbal. amazing. I have stopped everything except comfort meds. Current Medications - Current Medications Current Medications: Active Medications Acetaminophen (Tylenol) 650 mg PO Q4HR PRN PRN Reason: Pain 1 to 4 Last Admin: 07/28/17 00:34 Dose: 650 mg Amlodipine Besylate (Norvasc) 5 mg PO DAILY [facility] Last Admin: 07/31/17 07:18 Dose: Not Given Atropine Sulfate (Isopto Atropine 1% Ophth Drops) 1 - 4 drops SL Q2H PRN PRN Reason: Excessive secretions Carboxymethylcellulose (Refresh 1% Ophth Drops) 1 drops EACHEYE QID PRN PRN Reason: Dry Eye Haloperidol (Haldol Inj) 1 mg IVP QPM PRN PRN Reason: Agitation Haloperidol (Haldol Inj) 0.5 mg IVP Q6H PRN PRN Reason: Nausea / Vomiting Hydralazine HCl (Apresoline Inj) 10 mg IVP BID [facility] Last Admin: 07/31/17 09:50 Dose: 10 mg Acetaminophen (Ofirmev) 100 mls @ 400 mls/hr IV Q6HR PRN PRN Reason: PAIN Last Infusion: 07/30/17 16:53 Dose: Infused Lorazepam (Ativan Inj (Vial)) 1 mg IVP Q6H PRN PRN Reason: Anxiety/Agitation Losartan Potassium (Cozaar) 100 mg PO DAILY [facility] Last Admin: 07/31/17 07:18 Dose: Not Given Morphine Sulfate (Roxanol) 4 mg SL Q2HR PRN PRN Reason: PAIN Last Admin: 07/30/17 21:05 Dose: 4 mg Sodium Chloride (Normal Saline Flush 0.9%) 10 ml IVP PRN PRN PRN Reason: NEEDED PER PROVIDER ORDERS Last Admin: 07/30/17 20:56 Dose: 10 ml Sodium Chloride (Normal Saline Flush 0.9%) 10 ml IVP 0100,0900,1700 [facility] Last Admin: 07/31/17 09:41 Dose: 10 ml Nystatin 5 ml PO QID 07/27/17 Objective - Vital Signs/Intake & Output Reviewed Vital Signs: Yes Vital Signs: Vital Signs x48h Temp Pulse Resp BP Pulse Ox 07/31/17 15:21 37.1 C 87 22 141/86 H 96 07/31/17 10:50 80 141/57 H 07/31/17 10:35 80 139/59 H 07/31/17 10:20 79 141/77 H 07/31/17 10:05 77 143/73 H 07/31/17 10:00 75 129/79 07/31/17 09:55 76 129/79 07/31/17 09:26 36.7 C 77 18 146/86 H 95 Intake & Output: Intake & Output 07/28/17 07/29/17 07/30/17 07/31/17 23:59 23:59 23:59 23:59 Intake Total 2090 3386.666 2608.000 Output Total 350 1450 1775 1250 Balance 1740 1936.666 833.000 -1250 - Objective General Appearance: positive: No acute distress, Alert, Other (elderly weak weak female in NAD who is smiling. repeats the words the nurses tell her w echolalia) Eyes Bilateral: positive: PERRL, EOMI ENT: positive: Dry mucous membranes Neck: positive: No JVD Respiratory: positive: Chest non-tender, No respiratory distress, Rales, Rhonchi. negative: Wheezes Cardiovascular: positive: Regular rate & rhythm, Systolic murmur. negative: Gallop/S4, Friction rub Abdomen: positive: Non-tender, No organomegaly, Nml bowel sounds, No distention Skin: positive: Warm, Dry Extremities: positive: Pedal edema Neurologic/Psychiatric: positive: CN's nml (2-12), Motor nml (but weak, very weak, nonfocal findings.), Disoriented to person, Disoriented to place, Disoriented to time, Slurred/abnml speech (still present. but much better than yesteday's garbled speech) - Lab Results Fish Bones: 07/30/17 05:27 07/30/17 05:27 ABX Reporting Has patient been on IV antibiotics over the past 48 hours?: No Assessment/Plan - Problem List (1) Encephalopathy, metabolic Impression: improved but not completely resolved. She is going home tomorrow with hospice. from 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 Although she has CKD she is not felt to have low Vit D or secondary hyperparathyroidism. She has received therapy. Calcium now 10.8 wit h nml 10.3. (2) Failure to thrive Impression: she already had dementia with some deterioration in ability to function but was felt to be "good" by both son and . Unfortunately the falls she's had and subsequent sternal fracture with use of pain meds, hospitalization, etc. have causes her to precipitously deteriorate even further. Now add the hypercalcemia. In asking the question would I be surprised if she were alive in a year, yes is the answer. Family states she wouldn't have wanted some of our treatment. And to continue to do more is somewhat against her wishes. As such, they have asked for a Hospice Consult. Dr. Rogers has seen her and agrees she is appropriate for transition to Hospice. However, their intake cannot be until August 02. Today they say they can open her to Hospice August 01. I will transition to comfort measures only and dc August 01 with BLS to transport home. Qualifiers: Failure to thrive age range: in adult Qualified Code(s): R62.7 - Adult failure to thrive (3) Impression: on haldol prn, seroquel. continue.
[2017-07-31] MEDS: SODIUM CHLORIDE FLUSH 0.9% 10 ML SYRINGE IVP PRN (23:23)
[2017-08-01] MEDS: SODIUM CHLORIDE FLUSH 0.9% 10 ML SYRINGE IVP SCH (07:46)
[2017-08-01] MEDS: amLODIPine 5 MG TABLET PO SCH (07:46)
[2017-08-01] MEDS: LOSARTAN 50 MG TABLET PO SCH (07:46)
--- NOTE | 2017-08-01 08:25 | Discharge Plan ---
Discharge Plan Disposition: 50 Hospice/Home DC/Xfer Condition: Poor Prescriptions: amLODIPine [Norvasc] 5 mg PO DAILY #30 tablet Atropine 1% Ophth Drops [Isopto Atropine 1% Ophth Drops] 1 - 4 drops SL Q2H PRN #10 bottle PRN Reason: Excessive secretions LORazepam [Lorazepam Intensol] 2 mg PO Q4H PRN #30 ml PRN Reason: Agitation Morphine Sulfate [Morphine Sulf Oral (Roxanol)] 4 mg PO Q1H PRN #30 ml PRN Reason: Pain/Dyspnea Diet: Regular Activity Restrictions: Activity as Tolerated Shower Restrictions: Yes (must have bath aide) Driving Restrictions: Yes (no driving) Assistance Devices: Wheelchair, Other (hospital bed, chucks) Additional Instructions or Follow Up instructions: You were brought back from [facility] after being admitted there for rehabilitation. You already had fallen, and broken your sternal bone in your chest wall. The pain and inability to move was too much for you to go home and you went to [facility] for rehab. While there,you became sleepier, less responsive. You were brought back to the hospital and we found you to be dehydrated and having a high calcium. We know that you have primary hyperparathyroidism. You and Dr. Don discussed the treatment for hyperparathyroidism a couple of years ago and you opted not to have surgery. With hyperparathyroidism, calcium can get quite high. And that was the problem. You have responded to the treatment to bring your calcium down. You have become more awake. Your son and have noted that you have very specific wishes with regards to extended treatment, and being in the hospital. Your quality of life has taken a downturn. As such, your family has transitioned you to hospice and you are being discharged to hospice. While you can still call your primary care provider, Dr. Don, you now have a new physician that will oversee your care. That is Dr. Chase Mac. If you or your family have any questions about medicine, pain, comfort, anything at all, please call hospice. Follow-Up Care: Hospice No Smoking: If you smoke, Please STOP! Call for help. Follow-up with: Donell Mac MD [Provider Admit Priv/Credential] -
[2017-08-01 13:05] VITALS: BP 124/82
--- NOTE | 2017-08-13 22:09 | DISCHARGE SUMMARY ---
Physician: Luisa Mac MD DATE OF ADMISSION: 07/27/2017 DATE OF DISCHARGE: 08/01/2017 PRIMARY CARE PROVIDER: Carole Don M.D. DISCHARGE DIAGNOSES 1. Metabolic encephalopathy secondary to #2. 2. Hypercalcemia secondary to #3. 3. Primary hyperparathyroidism. 4. Failure to thrive. 5. Sternal fracture. 6. Frontal lobe dementia. DISCHARGE MEDICATIONS 1. Percocet 5/325 one tablet every 4 hours as needed for pain. 2. Allopurinol 100 mg daily. 3. Norvasc 5 mg daily. 4. Atenolol 25 mg p.o. daily. 5. Atropine ophthalmic drops sublingual q.2h. p.r.n. respiratory secretions. 6. Vitamin B12 1000 mcg sublingual daily. 7. Lidoderm patch topically for 12 hours to affected area daily. 8. Lorazepam 2 mg every 4 hours as needed for anxiety and agitation. 9. Cozaar 100 mg p.o. daily. 10. Morphine sulfate drops 4 mg p.o. q.1h. p.r.n. severe pain. 11. Nystatin 5 mL p.o. q.i.d. swish and spit with the patient's history of medications. PRINCIPAL PROCEDURES 1. Chest x-ray with diffuse interstitial abnormality without any change from 07/12/2017. No acute infiltrate. 2. Soft tissue ultrasound of neck with bilateral thyroid nodules measuring up to 17 mm. The dominant upper pole right thyroid nodule meets criteria for consideration of ultrasound-guided fine needle aspiration. 3. Head CT with generalized age-related cortical atrophic changes without evidence of acute intracranial abnormality. Moderate diffuse cerebral volume loss. No intracranial hemorrhage. 4. Blood cultures without growth after 4 days. HOSPITAL COURSE: The patient is an 81-year-old female who has frontal lobe dementia. She had recently fallen, was seen in the emergency room and sent home. Returned with chest pain and the chest pain was found to be from a sternal fracture. She was then sent to have some rehabilitation and pain management at an assisted living facility. At the assisted living facility, she became encephalopathic. It was noted that her calcium levels were elevated and she was getting IV fluids. However, she continued to get calcium orally while there. When she was brought to the emergency room, she was felt to be encephalopathic from hypercalcemia. The patient received normal saline for the treatment of her hypercalcemia. For 3 days, she really did not respond and on the day before discharge, the patient was finally felt to be more awake, more alert and more interactive. The family described her as having a conversation that was normal 3 weeks prior to admission. Even though she has dementia, she recognized who they were and felt that she had a reasonable quality of life by her definition and their definition. With her current status of unable to speak lucidly, confusion, and overall failure to thrive because of the fall, pain, age and memory loss, she was not doing well. She was identified as having primary hyperparathyroidism when the problem list in the [facility] was reviewed. The problem was found dating to many, many years ago, but not on the active problem list. When her primary care provider's office was called, it was confirmed that the patient had primary hyperparathyroidism and had declined therapy. After receiving normal saline, patient's hypercalcemia resolved. In admission, it was 12.5. For the next 2 days it was 12.6, on the day of discharge 10.8. PTH level was identified at 143. She had mild anemia, mild chronic kidney disease. The differential of multiple myeloma was considered but by then, son (who is power of fashion illustrator) and had met over the course of 2 days. They had felt that she had clearly stated to them in years past that she did not want interventions of this type. She did not want to be hospitalized, she did not want IVs, she did not want procedures done to her. As such, they requested palliative care treatment and evaluation with hospice. She was accepted into the hospice program and transitioned to the hospice discharge. Temperature on the day of discharge was 36.3, pulse 88, blood pressure 124/82, and respirations 20 and unlabored, 97% on room air. She was a confused but cooperative, slender, gaunt elderly female. She would smile when you walked into the room to address her and greet her by name. She did not know where she was, why she was here. She was able to recognize and son and asked that she really wanted to go home. Neck was supple. Lungs were clear to auscultation and percussion. Occasionally, she had crackles, but those cleared with a deep cough at my request. It was very difficult to get her to cough and to take deep breath because of her sternal fractures. The abdomen was soft, nontender. No organomegaly. Quiet bowel sounds. She has a Shipman catheter. No leg edema. Some of her arms and hands have ecchymosis from blood draws. She did have a swallow evaluation prior to discharge. She was unable to sit up and had no trunk strength and needed to be fed. Pureed foods and liquids were recommended with medicines to be given and crushed to applesauce. Greater than 30 minutes were spent in coordinating discharge. TD: 08/13/2017 21:30
== END 2017-08-01 13:09 | disposition hospice, home (50) | DRG 71 ==
LOC: EDUNIT# → ED 22:32 → ICU 07-27 00:43 → MS3 07-29 23:02
PROVIDERS: ADMIT Hospitalist; ATTEND Specialist
DX: G93.41 Metabolic encephalopathy (principal); F05 Delirium due to known physiological condition; E83.52 Hypercalcemia; F03.90 Unspecified dementia, unspecified severity, without behavioral disturbance, psychotic disturbance, mood disturbance, and anxiety; E21.0 Primary hyperparathyroidism; R62.7 Adult failure to thrive; G31.09 Other frontotemporal neurocognitive disorder; M10.9 Gout, unspecified; K52.9 Noninfective gastroenteritis and colitis, unspecified; I12.9 Hypertensive chronic kidney disease with stage 1 through stage 4 chronic kidney disease, or unspecified chronic kidney disease; N18.3 Chronic kidney disease, stage 3 (moderate); M19.90 Unspecified osteoarthritis, unspecified site; Z96.649 Presence of unspecified artificial hip joint; E78.5 Hyperlipidemia, unspecified; D53.9 Nutritional anemia, unspecified; E86.0 Dehydration; R26.9 Unspecified abnormalities of gait and mobility; S22.20XD Unspecified fracture of sternum, subsequent encounter for fracture with routine healing; W18.30XD Fall on same level, unspecified, subsequent encounter; Z66 Do not resuscitate; Z96.659 Presence of unspecified artificial knee joint; Z79.891 Long term (current) use of opiate analgesic; Z51.5 Encounter for palliative care; Z79.2 Long term (current) use of antibiotics; Z79.899 Other long term (current) drug therapy; Z87.01 Personal history of pneumonia (recurrent); Z87.440 Personal history of urinary (tract) infections; R68.89 Other general symptoms and signs; Z91.81 History of falling; E21.5 Disorder of parathyroid gland, unspecified; R77.0 Abnormality of albumin; E55.9 Vitamin D deficiency, unspecified
CPT/HCPCS: 36415; 70450; 71045; 76536; 80048; 80053; 81001; 81003; 82306; 82310; 82330; 82550; 83519; 83605; 83690; 83735; 83970; 84100; 84443; 84484; 85025; 87040; 87086; 87640; 93005; 99284; 99285

== ENCOUNTER 2017-08-01 13:04 | Outpatient (CLI) | payer MEDICARE, OTHER | END 2017-08-01 13:05 | disposition hospice, home (50) | LOC: EMS 13:04 | PROVIDERS: ATTEND Surgery | DX: R53.81 Other malaise (principal); Z74.01 Bed confinement status | CPT/HCPCS: A0425; A0428 ==